=== PATIENT | male | born 1990 | race Caucasian/White ===

== ENCOUNTER 2018-07-10 16:52 | Emergency (ER) | payer MEDICAID ==
[~2018-07-10] VITALS: Ht 180.3 cm; Wt 150.0 kg
[2018-07-10] MEDS ORDERED: DIVA500T4 PO (17:07)
[2018-07-10] MEDS ORDERED: TOPI25TA32 PO (17:07)
[2018-07-10] MEDS ORDERED: LOSA50TA14 PO (17:07)
[2018-07-10] MEDS ORDERED: MECL-76 PO (17:07)
[2018-07-10] MEDS ORDERED: ONDA4TAB7 PO (17:07)
[2018-07-10] MEDS ORDERED: ARIP5TAB13 PO (17:07)
[2018-07-10] MEDS ORDERED: SERT50TA PO (17:07)
[2018-07-10] MEDS ORDERED: CHLO25TA PO (17:07)
--- NOTE | 2018-07-10 17:09 | NUR ---
BIB [facility] D/T UNK AMOUNT DEPAKOTE . PT STATED PT WASNT FEELING WELL AND WENT DOWN IN THE RM AND TOOK DEPAKOTE AND WOKE UP THE BOTTLE WAS EMPTY. PT DIDNT REMEMBER HOW MANY PILLS TOOK BUT THE BOTTLE WAS EMPTY NOBODY WAS IN THE APT. PT IS AAOX4 SLIGHT DROWSY FSBS 116 NSR ON MONITOR BP STABLE HX OF SCHIZO SZ HTN DR DUARTE AT BED SIDE FOR ER EVAL PT IS STILL AAOX4 ABLE TO ANSWER FROM STAFF
--- NOTE | 2018-07-10 17:32 | NUR ---
pt strongly denied SI SA pt stated " i love my life i am not suicide "
[2018-07-10 17:50] LABS: BASOPHILS # (AUTO) 0.05 x10^3/uL (0-0.1); BASOPHILS % (AUTO) 1 % (0-1); EOSINOPHILS # (AUTO) 0.13 x10^3/uL (0-0.4); EOSINOPHILS % (AUTO) 1 % (1-7); LYMPHOCYTES # (AUTO) 1.65 x10^3/uL (1-3.4); LYMPHOCYTES % (AUTO) 18 % (22-44); MD NO; MEAN CORPUSCULAR HEMOGLOBIN 28.6 pg (27.5-34.5); MEAN CORPUSCULAR HGB CONC 33.1 g/dL (33.2-36.2); MEAN CORPUSCULAR VOLUME 86.5 fL (81-97); MEAN PLATELET VOLUME 8.6 fL (7.4-10.4); MONOCYTES # (AUTO) 0.91 x10^3/uL (0.2-0.8); MONOCYTES % (AUTO) 10 % (2-9); NEUTROPHILS # (AUTO) 6.57 x10^3/uL (1.8-6.8); NEUTROPHILS % (AUTO) 71 % (42-75); PLATELET COUNT 289 x10^3/uL (130-400); RED BLOOD COUNT 5.03 x10^6/uL (4.38-5.82); RED CELL DISTRIBUTION WIDTH 14.6 % (9.4-14.8)
[2018-07-10 17:57] LABS: ALANINE AMINOTRANSFERASE 40 U/L (12-78); ALBUMIN 3.5 g/dL (3.4-5.0); ANION GAP 8 mmol/L (5-15); CALCIUM 9.2 mg/dL (8.5-10.1); CHLORIDE 106 mmol/L (98-107); CREATININE 0.96 mg/dL (0.7-1.3)
[2018-07-10 17:59] LABS: ACETAMINOPHEN < 2 mcg/mL (10-30); ALKALINE PHOSPHATASE 83 U/L (45-117); BILIRUBIN,TOTAL 0.2 mg/dL (0.2-1.0); SALICYLATE LEVEL < 1.7 mg/dL (2.8-20.0); TOTAL PROTEIN 7.2 g/dL (6.4-8.2)
--- NOTE | 2018-07-10 18:25 | NUR ---
pt is resting vss stable
--- NOTE | 2018-07-10 19:40 | NUR ---
pt is resting no discomfort at this time will still observe now
--- NOTE | 2018-07-10 20:16 | NUR ---
TASK RN, ASSISTING PRIMARY WITH DISCHARGE. PT DISCHARGED HOME, AMBULATES TO DISCHARGE DESK WITH STEADY GAIT.
[2018-07-10 20:20] VITALS: BP 123/58
== END 2018-07-10 20:31 | disposition home or self-care (01) ==
LOC: ED 20:00
DX: R53.1 Weakness (principal); F20.9 Schizophrenia, unspecified; I10 Essential (primary) hypertension
CPT/HCPCS: 36415; 80053; 80307; 82140; 85025; 93005; 99284

== ENCOUNTER 2018-07-22 20:25 | Emergency (ER) | payer MEDICAID ==
[~2018-07-22] VITALS: Ht 180.3 cm; Wt 153.0 kg
[~2018-07-22 20:25] MED LIST: ARIP5TAB13 PO; CHLO25TA PO; DIVA500T4 PO; LOSA50TA14 PO; MECL-76 PO; ONDA4TAB7 PO; SERT50TA PO; TOPI25TA32 PO
[2018-07-22 21:33] LABS: BASOPHILS # (AUTO) 0.04 x10^3/uL (0-0.1); BASOPHILS % (AUTO) 1 % (0-1); EOSINOPHILS # (AUTO) 0.17 x10^3/uL (0-0.4); EOSINOPHILS % (AUTO) 2 % (1-7); LYMPHOCYTES # (AUTO) 1.75 x10^3/uL (1-3.4); LYMPHOCYTES % (AUTO) 21 % (22-44); MD NO; MEAN CORPUSCULAR HEMOGLOBIN 28.7 pg (27.5-34.5); MEAN CORPUSCULAR VOLUME 86.9 fL (81-97); MEAN PLATELET VOLUME 8.8 fL (7.4-10.4); MONOCYTES # (AUTO) 0.96 x10^3/uL (0.2-0.8); MONOCYTES % (AUTO) 11 % (2-9); NEUTROPHILS # (AUTO) 5.53 x10^3/uL (1.8-6.8); NEUTROPHILS % (AUTO) 66 % (42-75); PLATELET COUNT 283 x10^3/uL (130-400); RED BLOOD COUNT 4.54 x10^6/uL (4.38-5.82); RED CELL DISTRIBUTION WIDTH 15.3 % (9.4-14.8)
[2018-07-22 21:46] LABS: ALBUMIN 3.5 g/dL (3.4-5.0); ANION GAP 7 mmol/L (5-15); CALCIUM 8.8 mg/dL (8.5-10.1); CHLORIDE 113 mmol/L (98-107)
[2018-07-22 21:50] LABS: ALANINE AMINOTRANSFERASE 43 U/L (12-78); ALKALINE PHOSPHATASE 80 U/L (45-117); BILIRUBIN,TOTAL 0.3 mg/dL (0.2-1.0); CREATININE 1.07 mg/dL (0.7-1.3); TOTAL PROTEIN 6.9 g/dL (6.4-8.2)
--- NOTE | 2018-07-22 22:38 | NUR ---
FROM LOBBY TO ROOM
--- NOTE | 2018-07-22 23:07 | NUR ---
DR. MANCIA WAS IN TO DISCUSS FINDING SO FAR AND POC WITH PT.
[2018-07-22] MEDS ORDERED: MAALOX/HYOSCYAMINE/LIDOCAINE 45 ML BTL ONE (23:24)
[2018-07-22] MEDS ORDERED: ONDANSETRON ODT 4 MG ONE (23:24)
[2018-07-22] MEDS ORDERED: ONDANSETRON ODT 8 MG ONE (23:27)
--- NOTE | 2018-07-22 23:29 | NUR ---
PT. TO [facility] WITH C/O RLQ ABD PAIN, N/V/D SINCE YESTERDAY AM AT 0900. PT. REPORTS WAS SEEN YESTERDAY AT [facility] ([place]) FOR SAME "THEY COULDN'T FIND ANYTHING". REQUESTED UA FROM PT. "I CAN'T PEE RIGHT NOW". PT. IS AWARE OF NEED FOR UA. MEDICATED PER MAR. DENIES NEEDS.
[2018-07-22] MEDS ORDERED: ONDANSETRON ODT 8 MG PO ONE (23:30)
[2018-07-22] MEDS ORDERED: MAALOX/HYOSCYAMINE/LIDOCAINE 45 ML BTL PO ONE (23:30)
--- NOTE | 2018-07-23 00:07 | NUR ---
PT. OUT OF ROOM FOR US.
--- NOTE | 2018-07-23 00:28 | NUR ---
REQUESTED URINE SAMPLE FROM PT. HE STATES "NO" WHEN ASKED TO AT LEAST TRY TO PROVIDE SAMPLE. DENIES NEEDS. SAFETY MEASURES OBSERVED.
[2018-07-23 00:31] VITALS: BP 107/60
--- NOTE | 2018-07-23 00:31 | NUR ---
TASK RN: PT RESTING IN GURNEY W/ EYES CLOSED. BP/SPO2 MONITOR IN PLACE. RESPIRATIONS EVEN/UNLABORED. PER PRIMARY RNCONG, PT REFUSING UA AT THIS TIME.
--- NOTE | 2018-07-23 00:54 | NUR ---
TASK RN: POC IS DC. PT OFF MONITORING AND UP TO DRESS SELF. AWAITING DC INSTRUCTIONS.
--- NOTE | 2018-07-23 01:15 | NUR ---
TASK RN: DC EDUCATION PROVIDED, PT DEMONSTRATES UNDERSTANDING. PT AMBULATED STEADILY TO DC WITH RN
== END 2018-07-23 01:17 | disposition home or self-care (01) ==
LOC: ED 23:13
DX: R10.11 Right upper quadrant pain (principal); R11.2 Nausea with vomiting, unspecified; R19.7 Diarrhea, unspecified; F20.9 Schizophrenia, unspecified; I10 Essential (primary) hypertension
CPT/HCPCS: 36415; 76700; 80053; 83690; 85025; 99284; Q0162

== ENCOUNTER 2018-08-21 03:44 | Inpatient (IN) | payer MEDICAID ==
[~2018-08-21] VITALS: Ht 180.3 cm; Wt 150.8 kg
[2018-08-21 04:38] VITALS: BP 133/79
[2018-08-21] MEDS ORDERED: BISACODYL 10 MG SUPP PR PRN (05:00)
[2018-08-21] MEDS ORDERED: POLYETHYLENE GLYCOL 17 GM PACKET PO PRN (05:00)
[2018-08-21] MEDS ORDERED: DOCUSATE 100 MG CAPSULE PO PRN (05:00)
[2018-08-21 06:23] LABS: BASOPHILS # (AUTO) 0.06 x10^3/uL (0-0.1); BASOPHILS % (AUTO) 1 % (0-1); EOSINOPHILS # (AUTO) 0.22 x10^3/uL (0-0.4); EOSINOPHILS % (AUTO) 3 % (1-7); LYMPHOCYTES # (AUTO) 1.87 x10^3/uL (1-3.4); LYMPHOCYTES % (AUTO) 28 % (22-44); MD NO; MEAN CORPUSCULAR HEMOGLOBIN 29.1 pg (27.5-34.5); MEAN CORPUSCULAR HGB CONC 33.2 g/dL (33.2-36.2); MEAN CORPUSCULAR VOLUME 87.5 fL (81-97); MEAN PLATELET VOLUME 9.1 fL (7.4-10.4); MONOCYTES # (AUTO) 0.64 x10^3/uL (0.2-0.8); MONOCYTES % (AUTO) 10 % (2-9); NEUTROPHILS # (AUTO) 3.81 x10^3/uL (1.8-6.8); NEUTROPHILS % (AUTO) 58 % (42-75); PLATELET COUNT 240 x10^3/uL (130-400); RED BLOOD COUNT 4.45 x10^6/uL (4.38-5.82); RED CELL DISTRIBUTION WIDTH 14.5 % (9.4-14.8)
[2018-08-21 06:24] LABS: CHLORIDE 113 mmol/L (98-107)
[2018-08-21 06:56] LABS: ALANINE AMINOTRANSFERASE 42 U/L (12-78); ALBUMIN 3.1 g/dL (3.4-5.0); ALKALINE PHOSPHATASE 79 U/L (45-117); ANION GAP 8 mmol/L (5-15); BILIRUBIN,TOTAL 0.3 mg/dL (0.2-1.0); CALCIUM 8.3 mg/dL (8.5-10.1); CHOL/HDL RATIO 5.2; CHOLESTEROL, TOTAL 129 mg/dL (140-239); CREATININE 0.95 mg/dL (0.7-1.3); HDL CHOL % 19 % (26-37); HDL CHOLESTEROL (DIRECT) 25 mg/dL (40-60); LDL CHOLESTEROL,CALCULATED 65 mg/dL (54-169); LDL/HDL RATIO 2.6 (0.5-3.0); T4 (THYROXINE) 6.5 mcg/dL (4.5-12.1); TOTAL PROTEIN 5.9 g/dL (6.4-8.2); TRIGLYCERIDES 195 mg/dL (50-200); VLDL CHOLESTEROL 39 mg/dL (0-25)
[2018-08-21 07:05] VITALS: BP 103/66
[2018-08-21 08:43] LABS: HCT (SEDRATE) 38.9 % (39.2-51.8)
[2018-08-21] MEDS: NICOTINE 21 MG/24 HR PATCH.TD24 TD SCH (09:21)
[2018-08-21] MEDS ORDERED: POTASSIUM CHLORIDE 20 MEQ TAB.ER.PRT PO ONE (11:00)
[2018-08-21] MEDS ORDERED: ONDANSETRON 4 MG TABLET PO PRN (11:00)
[2018-08-21] MEDS: MECLIZINE CHEWABLE 25 MG TAB PO SCH ×3 (11:30→20:22)
[2018-08-21 11:52] LABS: MICROSCOPIC NOT IND
[2018-08-21 11:55] LABS: CULTURE INDICATED? NO
[2018-08-21 12:17] LABS: AMPHETAMINE SCREEN, URINE Negative (Negative); BARBITURATE SCREEN, URINE Negative (Negative); BENZODIAZEPINE SCREEN, URINE Negative (Negative); CANNABINOID SCREEN, URINE Negative (Negative); COCAINE SCREEN, URINE Negative (Negative); METHADONE SCREEN, URINE Negative (Negative); OPIATE SCREEN, URINE Negative (Negative)
[2018-08-21] MEDS: ACETAMINOPHEN 325 MG TABLET PO PRN (18:18)
[2018-08-21 19:23] VITALS: BP 125/80
[2018-08-21] MEDS: TOPIRAMATE 25 MG TABLET PO SCH (20:22)
[2018-08-21] MEDS: DIVALPROEX 500 MG TAB.ER.24H PO SCH (20:25)
[2018-08-22 06:00] LABS: BASOPHILS # (AUTO) 0.05 x10^3/uL (0-0.1); BASOPHILS % (AUTO) 1 % (0-1); EOSINOPHILS # (AUTO) 0.19 x10^3/uL (0-0.4); EOSINOPHILS % (AUTO) 3 % (1-7); LYMPHOCYTES # (AUTO) 2.19 x10^3/uL (1-3.4); LYMPHOCYTES % (AUTO) 32 % (22-44); MD NO; MEAN CORPUSCULAR HEMOGLOBIN 28.9 pg (27.5-34.5); MEAN CORPUSCULAR HGB CONC 33.4 g/dL (33.2-36.2); MEAN CORPUSCULAR VOLUME 86.6 fL (81-97); MEAN PLATELET VOLUME 9.2 fL (7.4-10.4); MONOCYTES # (AUTO) 0.58 x10^3/uL (0.2-0.8); MONOCYTES % (AUTO) 8 % (2-9); NEUTROPHILS % (AUTO) 57 % (42-75); PLATELET COUNT 241 x10^3/uL (130-400); RED BLOOD COUNT 4.51 x10^6/uL (4.38-5.82); RED CELL DISTRIBUTION WIDTH 14.4 % (9.4-14.8)
[2018-08-22 06:23] LABS: ANION GAP 6 mmol/L (5-15); CALCIUM 8.6 mg/dL (8.5-10.1); CHLORIDE 114 mmol/L (98-107)
[2018-08-22 06:26] LABS: CREATININE 0.91 mg/dL (0.7-1.3)
[2018-08-22] MEDS: MECLIZINE CHEWABLE 25 MG TAB PO SCH ×4 (06:40→20:12)
[2018-08-22 07:34] VITALS: BP 121/80
[2018-08-22] MEDS: ARIPIPRAZOLE 5 MG TABLET PO SCH (08:57)
[2018-08-22] MEDS: LOSARTAN 50MG TABLET PO SCH (08:57)
[2018-08-22] MEDS: DIVALPROEX 500 MG TAB.ER.24H PO SCH ×2 (08:57→20:12)
[2018-08-22] MEDS: NICOTINE 21 MG/24 HR PATCH.TD24 TD SCH (08:58)
[2018-08-22] MEDS: CHLORTHALIDONE 25 MG TABLET PO SCH (08:58)
[2018-08-22] MEDS: TOPIRAMATE 25 MG TABLET PO SCH ×2 (08:58→20:12)
[2018-08-22] MEDS ORDERED: SERTRALINE 50MG TABLET PO SCH (09:00)
[2018-08-22] MEDS: ACETAMINOPHEN 325 MG TABLET PO PRN (18:22)
[2018-08-22 19:30] VITALS: BP 122/76
[2018-08-22] MEDS: TRAZODONE 100MG TABLET PO SCH (20:13)
[2018-08-23] MEDS: MECLIZINE CHEWABLE 25 MG TAB PO SCH ×4 (06:17→20:29)
[2018-08-23 07:12] VITALS: BP 113/73
[2018-08-23] MEDS: CHLORTHALIDONE 25 MG TABLET PO SCH (08:31)
[2018-08-23] MEDS: ARIPIPRAZOLE 5 MG TABLET PO SCH (08:31)
[2018-08-23] MEDS: DIVALPROEX 500 MG TAB.ER.24H PO SCH ×2 (08:31→20:29)
[2018-08-23] MEDS: TOPIRAMATE 25 MG TABLET PO SCH ×2 (08:31→20:29)
[2018-08-23] MEDS: LOSARTAN 50MG TABLET PO SCH (08:31)
[2018-08-23] MEDS: SERTRALINE 50MG TABLET PO SCH (08:31)
[2018-08-23] MEDS: NICOTINE 21 MG/24 HR PATCH.TD24 TD SCH (08:33)
[2018-08-23 19:34] VITALS: BP 108/69
[2018-08-23] MEDS: TRAZODONE 100MG TABLET PO SCH (20:29)
[2018-08-24] MEDS: MECLIZINE CHEWABLE 25 MG TAB PO SCH ×4 (06:17→19:37)
[2018-08-24 07:30] VITALS: BP 117/68
[2018-08-24] MEDS: ARIPIPRAZOLE 5 MG TABLET PO SCH (09:15)
[2018-08-24] MEDS: TOPIRAMATE 25 MG TABLET PO SCH ×2 (09:16→19:37)
[2018-08-24] MEDS: LOSARTAN 50MG TABLET PO SCH (09:16)
[2018-08-24] MEDS: CHLORTHALIDONE 25 MG TABLET PO SCH (09:16)
[2018-08-24] MEDS: DIVALPROEX 500 MG TAB.ER.24H PO SCH ×2 (09:16→19:37)
[2018-08-24] MEDS: SERTRALINE 50MG TABLET PO SCH (09:17)
[2018-08-24] MEDS: NICOTINE 21 MG/24 HR PATCH.TD24 TD SCH (09:17)
[2018-08-24] MEDS ORDERED: HYDROXYZINE PAMOATE 50MG CAP PO PRN (16:30)
[2018-08-24 18:15] VITALS: BP 124/78
[2018-08-24 18:51] VITALS: BP 132/77
[2018-08-24 19:11] LABS: TROPONIN I < 0.015 ng/mL (0.000-0.045)
[2018-08-24] MEDS: ACETAMINOPHEN 325 MG TABLET PO PRN (19:37)
[2018-08-24 19:38] VITALS: BP 133/71
[2018-08-24] MEDS: TRAZODONE 100MG TABLET PO SCH (19:40)
[2018-08-24 22:27] LABS: TROPONIN I < 0.015 ng/mL (0.000-0.045)
[2018-08-25 01:57] LABS: TROPONIN I < 0.015 ng/mL (0.000-0.045)
[2018-08-25] MEDS: MECLIZINE CHEWABLE 25 MG TAB PO SCH ×4 (06:00→20:13)
[2018-08-25 07:32] VITALS: BP 110/70
[2018-08-25] MEDS: TOPIRAMATE 25 MG TABLET PO SCH ×2 (08:59→20:14)
[2018-08-25] MEDS: SERTRALINE 50MG TABLET PO SCH (08:59)
[2018-08-25] MEDS: LOSARTAN 50MG TABLET PO SCH (08:59)
[2018-08-25] MEDS: ARIPIPRAZOLE 5 MG TABLET PO SCH (08:59)
[2018-08-25] MEDS: CHLORTHALIDONE 25 MG TABLET PO SCH (08:59)
[2018-08-25] MEDS: DIVALPROEX 500 MG TAB.ER.24H PO SCH ×2 (08:59→20:13)
[2018-08-25] MEDS: NICOTINE 21 MG/24 HR PATCH.TD24 TD SCH (09:00)
[2018-08-25] MEDS: ACETAMINOPHEN 325 MG TABLET PO PRN (18:45)
[2018-08-25 19:38] VITALS: BP 103/60
[2018-08-25] MEDS: TRAZODONE 100MG TABLET PO SCH (20:14)
[2018-08-26] MEDS: MECLIZINE CHEWABLE 25 MG TAB PO SCH ×2 (06:01→11:14)
[2018-08-26 07:21] VITALS: BP 127/81
[2018-08-26] MEDS: LOSARTAN 50MG TABLET PO SCH (08:02)
[2018-08-26] MEDS: ARIPIPRAZOLE 5 MG TABLET PO SCH (08:02)
[2018-08-26] MEDS: DIVALPROEX 500 MG TAB.ER.24H PO SCH (08:03)
[2018-08-26] MEDS: CHLORTHALIDONE 25 MG TABLET PO SCH (08:03)
[2018-08-26] MEDS: TOPIRAMATE 25 MG TABLET PO SCH (08:03)
[2018-08-26] MEDS: SERTRALINE 50MG TABLET PO SCH (08:04)
[2018-08-26] MEDS: NICOTINE 21 MG/24 HR PATCH.TD24 TD SCH (08:06)
== END 2018-08-26 12:15 | disposition left against medical advice (07) | DRG 885 ==
LOC: 3E 04:27
PROVIDERS: ADMIT Psychiatry & Neurology Psychosomatic Medicine; ATTEND Psychiatry & Neurology Psychosomatic Medicine
DX: F25.0 Schizoaffective disorder, bipolar type (principal); R45.851 Suicidal ideations; Z68.42 Body mass index [BMI] 45.0-49.9, adult; I10 Essential (primary) hypertension; G43.909 Migraine, unspecified, not intractable, without status migrainosus; E87.6 Hypokalemia; G40.909 Epilepsy, unspecified, not intractable, without status epilepticus; F17.200 Nicotine dependence, unspecified, uncomplicated; F14.11 Cocaine abuse, in remission; E66.9 Obesity, unspecified; Z53.21 Procedure and treatment not carried out due to patient leaving prior to being seen by health care provider; Z88.6 Allergy status to analgesic agent; Z81.8 Family history of other mental and behavioral disorders
CPT/HCPCS: 36415; 71045; 80048; 80053; 80061; 80164; 80307; 81003; 82140; 82607; 84436; 84443; 84484; 85025; 85651; 86592; 93005; Q0177

== ENCOUNTER 2018-09-24 13:24 | Emergency (ER) | payer MEDICAID ==
[~2018-09-24] VITALS: Ht 180.3 cm; Wt 152.2 kg
[2018-09-24 13:33] VITALS: BP 143/82
== END 2018-09-24 18:35 ==
LOC: ED 16:02 → UNDOADMIN 16:51 → EDIP 16:51 → ED 18:35
DX: F33.9 Major depressive disorder, recurrent, unspecified (principal); R45.851 Suicidal ideations; F20.9 Schizophrenia, unspecified; I10 Essential (primary) hypertension
CPT/HCPCS: 36415; 80053; 80061; 80164; 80307; 82140; 82607; 84436; 84443; 85025; 85651; 86592; 99285

== ENCOUNTER 2018-09-24 18:33 | Inpatient (IN) | payer MEDICAID ==
[~2018-09-24] VITALS: Ht 180.3 cm; Wt 151.3 kg
[2018-09-30 07:37] VITALS: BP 108/64
== END 2018-09-30 10:27 | disposition home or self-care (01) | DRG 750 ==
LOC: 3E 18:33
PROVIDERS: ADMIT Psychiatry & Neurology Psychosomatic Medicine; ATTEND Psychiatry & Neurology Psychosomatic Medicine
DX: F25.0 Schizoaffective disorder, bipolar type (principal); R45.851 Suicidal ideations; E66.01 Morbid (severe) obesity due to excess calories; E87.0 Hyperosmolality and hypernatremia; Z68.42 Body mass index [BMI] 45.0-49.9, adult; G40.909 Epilepsy, unspecified, not intractable, without status epilepticus; F14.20 Cocaine dependence, uncomplicated; F17.200 Nicotine dependence, unspecified, uncomplicated; G47.00 Insomnia, unspecified; I10 Essential (primary) hypertension; Z79.899 Other long term (current) drug therapy; Z88.8 Allergy status to other drugs, medicaments and biological substances
CPT/HCPCS: 36415; 70450; 80048; 80053; 80061; 80164; 81003; 82140; 82607; 84439; 84443; 85025; 86592; 93005

== ENCOUNTER 2018-10-01 22:42 | Emergency (ER) | payer MEDICAID ==
[~2018-10-01] VITALS: Ht 180.3 cm; Wt 148.5 kg
[2018-10-03 09:41] VITALS: BP 118/61
== END 2018-10-03 14:19 | disposition home or self-care (01) ==
LOC: ED 22:59
DX: R45.851 Suicidal ideations (principal); I10 Essential (primary) hypertension; F32.9 Major depressive disorder, single episode, unspecified; F20.9 Schizophrenia, unspecified
CPT/HCPCS: 36415; 80048; 80164; 80307; 82040; 85025; 99284

== ENCOUNTER 2019-01-08 02:54 | Emergency (ER) | payer MEDICAID, OTHER ==
[~2019-01-08] VITALS: Ht 180.3 cm; Wt 146.9 kg
[~2019-01-08 02:54] MED LIST changes: +ARIP10TA33 PO; +SERT50TA28 PO; +TRAZ-137 PO
[2019-01-08] MEDS ORDERED: KETOROLAC 30 MG/1 ML IM ONE (03:30)
[2019-01-08] MEDS ORDERED: KETOROLAC 30 MG/1 ML ONE (03:36)
[2019-01-08 04:22] VITALS: BP 135/71
== END 2019-01-08 04:25 | disposition home or self-care (01) ==
LOC: ED 04:15
DX: G89.11 Acute pain due to trauma (principal); M25.511 Pain in right shoulder; F14.10 Cocaine abuse, uncomplicated; F17.210 Nicotine dependence, cigarettes, uncomplicated; F32.9 Major depressive disorder, single episode, unspecified; Y04.8XXA Assault by other bodily force, initial encounter; Y93.89 Activity, other specified; Y92.89 Other specified places as the place of occurrence of the external cause; Y99.0 Civilian activity done for income or pay
CPT/HCPCS: 73030; 96372; 99283; J1885

== ENCOUNTER 2019-01-24 18:23 | Emergency (ER) | payer MEDICAID, OTHER ==
[~2019-01-24] VITALS: Ht 180.3 cm; Wt 146.1 kg
[2019-01-24] MEDS ORDERED: ASPIRIN 81 MG TABLET CHEW ONE (19:23)
[2019-01-24 19:33] LABS: BASOPHILS # (AUTO) 0.08 x10^3/uL (0-0.1); BASOPHILS % (AUTO) 1 % (0-1); EOSINOPHILS # (AUTO) 0.24 x10^3/uL (0-0.4); EOSINOPHILS % (AUTO) 2 % (1-7); LYMPHOCYTES # (AUTO) 2.38 x10^3/uL (1-3.4); LYMPHOCYTES % (AUTO) 24 % (22-44); MD NO; MEAN CORPUSCULAR HEMOGLOBIN 28.6 pg (27.5-34.5); MEAN CORPUSCULAR HGB CONC 32.7 g/dL (33.2-36.2); MEAN CORPUSCULAR VOLUME 87.5 fL (81-97); MEAN PLATELET VOLUME 8.5 fL (7.4-10.4); MONOCYTES # (AUTO) 0.66 x10^3/uL (0.2-0.8); MONOCYTES % (AUTO) 7 % (2-9); NEUTROPHILS # (AUTO) 6.48 x10^3/uL (1.8-6.8); NEUTROPHILS % (AUTO) 66 % (42-75); PLATELET COUNT 302 x10^3/uL (130-400); RED BLOOD COUNT 4.99 x10^6/uL (4.38-5.82); RED CELL DISTRIBUTION WIDTH 14.9 % (9.4-14.8)
[2019-01-24 19:45] LABS: ALANINE AMINOTRANSFERASE 48 U/L (12-78); ALBUMIN 3.1 g/dL (3.4-5.0); ANION GAP 6 mmol/L (5-15); CALCIUM 8.2 mg/dL (8.5-10.1); CHLORIDE 109 mmol/L (98-107); CREATININE 0.88 mg/dL (0.7-1.3)
[2019-01-24 19:50] LABS: ALKALINE PHOSPHATASE 62 U/L (45-117); BILIRUBIN,TOTAL 0.4 mg/dL (0.2-1.0); TOTAL PROTEIN 5.8 g/dL (6.4-8.2); TROPONIN I < 0.015 ng/mL (0.000-0.045)
[2019-01-24 20:00] VITALS: BP 131/72
[2019-01-24] MEDS ORDERED: ASPIRIN 81 MG TABLET CHEW PO ONE (20:00)
--- NOTE | 2019-01-24 20:00 | NUR ---
D/C INSTRUCTIONS, MEDS & F/U APPT RV'WD WITH PT, HE VERBALIZES UNDERSTANDING. RX GIVEN X2. PT AMBULATED OUT OF ED WITHOUT DIFFICULTY.
--- NOTE | 2019-01-24 20:03 | NUR ---
ASHLEY MCGARW AT .
== END 2019-01-24 20:28 | disposition home or self-care (01) ==
LOC: ED 20:22
DX: J06.9 Acute upper respiratory infection, unspecified (principal); F17.210 Nicotine dependence, cigarettes, uncomplicated
CPT/HCPCS: 36415; 71046; 80053; 84484; 85025; 93005; 99284

== ENCOUNTER 2019-02-10 16:32 | Inpatient (IN) | payer MEDICAID ==
[~2019-02-10] VITALS: Ht 180.3 cm; Wt 140.7 kg
[2019-02-10] MEDS ORDERED: POLYETHYLENE GLYCOL 17 GM PACKET PO PRN (18:00)
[2019-02-10] MEDS ORDERED: DOCUSATE 100 MG CAPSULE PO PRN (18:00)
[2019-02-10] MEDS ORDERED: ACETAMINOPHEN 325 MG TABLET PO PRN (18:00)
[2019-02-10] MEDS ORDERED: BISACODYL 10 MG SUPP PR PRN (18:00)
[2019-02-10] MEDS ORDERED: ONDANSETRON ODT 4 MG PO PRN (18:00)
[2019-02-10 19:30] VITALS: BP 141/84
[2019-02-10] MEDS: PLEASE ENTER HEIGHT AND WEIGHT MC SCH (19:30)
[2019-02-10] MEDS ORDERED: ONDANSETRON 4 MG TABLET PO PRN (20:30)
[2019-02-10] MEDS: DIVALPROEX 500 MG TAB.ER.24H PO SCH (20:44)
[2019-02-10] MEDS: TRAZODONE 100MG TABLET PO SCH (20:45)
[2019-02-10] MEDS ORDERED: TOPIRAMATE 100 MG TABLET ONE (20:46)
[2019-02-10] MEDS: MECLIZINE HCL 25 MG TABLET PO SCH (20:48)
[2019-02-10] MEDS: TOPIRAMATE 25 MG TABLET PO SCH (21:24)
[2019-02-11] MEDS: PLEASE ENTER HEIGHT AND WEIGHT MC SCH (03:30)
[2019-02-11] MEDS: MECLIZINE HCL 25 MG TABLET PO SCH ×4 (06:08→20:41)
[2019-02-11 07:21] LABS: BASOPHILS # (AUTO) 0.04 x10^3/uL (0-0.1); BASOPHILS % (AUTO) 1 % (0-1); EOSINOPHILS # (AUTO) 0.26 x10^3/uL (0-0.4); EOSINOPHILS % (AUTO) 4 % (1-7); LYMPHOCYTES # (AUTO) 2.18 x10^3/uL (1-3.4); LYMPHOCYTES % (AUTO) 33 % (22-44); MD NO; MEAN CORPUSCULAR HEMOGLOBIN 28.6 pg (27.5-34.5); MEAN CORPUSCULAR VOLUME 86.7 fL (81-97); MEAN PLATELET VOLUME 8.2 fL (7.4-10.4); MONOCYTES # (AUTO) 0.67 x10^3/uL (0.2-0.8); MONOCYTES % (AUTO) 10 % (2-9); NEUTROPHILS # (AUTO) 3.53 x10^3/uL (1.8-6.8); NEUTROPHILS % (AUTO) 53 % (42-75); PLATELET COUNT 257 x10^3/uL (130-400); RED CELL DISTRIBUTION WIDTH 14.8 % (9.4-14.8)
[2019-02-11 07:32] LABS: ALBUMIN 3.1 g/dL (3.4-5.0); ANION GAP 7 mmol/L (5-15); CALCIUM 8.5 mg/dL (8.5-10.1); CHLORIDE 112 mmol/L (98-107)
[2019-02-11 07:49] VITALS: BP 128/82
[2019-02-11 07:57] LABS: ALANINE AMINOTRANSFERASE 67 U/L (12-78); ALKALINE PHOSPHATASE 76 U/L (45-117); BILIRUBIN,TOTAL 0.4 mg/dL (0.2-1.0); CHOL/HDL RATIO 5.6; CHOLESTEROL, TOTAL 117 mg/dL (140-239); CREATININE 0.98 mg/dL (0.7-1.3); FREE T4 (FREE THYROXINE) 1.16 ng/dL (0.76-1.46); HDL CHOL % 18 % (26-37); HDL CHOLESTEROL (DIRECT) 21 mg/dL (40-60); LDL CHOLESTEROL,CALCULATED 55 mg/dL (54-169); LDL/HDL RATIO 2.6 (0.5-3.0); TOTAL PROTEIN 6.2 g/dL (6.4-8.2); TRIGLYCERIDES 205 mg/dL (50-200); VLDL CHOLESTEROL 41 mg/dL (0-25)
[2019-02-11] MEDS: TOPIRAMATE 25 MG TABLET PO SCH ×3 (09:00→21:02)
[2019-02-11] MEDS: DIVALPROEX 500 MG TAB.ER.24H PO SCH ×3 (09:00→21:00)
[2019-02-11] MEDS: ARIPIPRAZOLE 10 MG TABLET PO SCH (09:10)
[2019-02-11] MEDS: CHLORTHALIDONE 25 MG TABLET PO SCH (09:11)
[2019-02-11] MEDS: SERTRALINE 50MG TABLET PO SCH (09:11)
[2019-02-11] MEDS: LOSARTAN 50MG TABLET PO SCH (09:12)
[2019-02-11] MEDS: NICOTINE 21 MG/24 HR PATCH.TD24 TD SCH (09:15)
[2019-02-11 09:26] LABS: MICROSCOPIC NOT IND
[2019-02-11 09:33] LABS: CULTURE INDICATED? NO
[2019-02-11] MEDS: MULTIVITAMIN 1 TABLET PO SCH (12:06)
[2019-02-11] MEDS: FOLIC ACID 1 MG TABLET PO SCH (12:07)
[2019-02-11] MEDS: THIAMINE 100MG TABLET PO SCH (12:07)
[2019-02-11 19:57] VITALS: BP 138/86
[2019-02-11] MEDS: TRAZODONE 100MG TABLET PO SCH (20:41)
[2019-02-12] MEDS: MECLIZINE HCL 25 MG TABLET PO SCH ×4 (06:01→20:16)
[2019-02-12 07:12] VITALS: BP 117/76
[2019-02-12] MEDS: NICOTINE 21 MG/24 HR PATCH.TD24 TD SCH (08:43)
[2019-02-12] MEDS: CHLORTHALIDONE 25 MG TABLET PO SCH (08:44)
[2019-02-12] MEDS: MULTIVITAMIN 1 TABLET PO SCH (08:44)
[2019-02-12] MEDS: DIVALPROEX 500 MG TAB.ER.24H PO SCH ×2 (08:44→20:16)
[2019-02-12] MEDS: ARIPIPRAZOLE 10 MG TABLET PO SCH (08:44)
[2019-02-12] MEDS: THIAMINE 100MG TABLET PO SCH (08:44)
[2019-02-12] MEDS: LOSARTAN 50MG TABLET PO SCH (08:44)
[2019-02-12] MEDS: SERTRALINE 50MG TABLET PO SCH (08:45)
[2019-02-12] MEDS: FOLIC ACID 1 MG TABLET PO SCH (08:45)
[2019-02-12] MEDS: TOPIRAMATE 25 MG TABLET PO SCH ×2 (08:57→20:16)
[2019-02-12] MEDS ORDERED: SERT50TA28 PO (13:17)
[2019-02-12] MEDS ORDERED: TRAZ-137 PO (13:17)
[2019-02-12] MEDS ORDERED: ARIP10TA33 PO (13:17)
[2019-02-12] MEDS ORDERED: LOSA50TA2 PO (13:17)
[2019-02-12] MEDS ORDERED: CHLO25TA PO (13:17)
[2019-02-12 19:27] VITALS: BP 95/61
[2019-02-12] MEDS: TRAZODONE 100MG TABLET PO SCH (20:16)
[2019-02-12 22:56] VITALS: BP 111/69
[2019-02-13] MEDS: MECLIZINE HCL 25 MG TABLET PO SCH ×2 (06:10→11:00)
[2019-02-13 07:24] VITALS: BP 109/70
[2019-02-13] MEDS: ARIPIPRAZOLE 10 MG TABLET PO SCH (08:37)
[2019-02-13] MEDS: DIVALPROEX 500 MG TAB.ER.24H PO SCH (08:37)
[2019-02-13] MEDS: LOSARTAN 50MG TABLET PO SCH (08:37)
[2019-02-13] MEDS: MULTIVITAMIN 1 TABLET PO SCH (08:37)
[2019-02-13] MEDS: THIAMINE 100MG TABLET PO SCH (08:37)
[2019-02-13] MEDS: FOLIC ACID 1 MG TABLET PO SCH (08:37)
[2019-02-13] MEDS: SERTRALINE 50MG TABLET PO SCH (08:37)
[2019-02-13] MEDS: CHLORTHALIDONE 25 MG TABLET PO SCH (08:37)
[2019-02-13] MEDS: TOPIRAMATE 25 MG TABLET PO SCH (08:37)
[2019-02-13] MEDS: NICOTINE 21 MG/24 HR PATCH.TD24 TD SCH (08:38)
== END 2019-02-13 11:27 | disposition home or self-care (01) | DRG 750 ==
LOC: 3E 18:10
PROVIDERS: ADMIT Psychiatry & Neurology Psychosomatic Medicine; ATTEND Psychiatry & Neurology Psychosomatic Medicine
DX: F25.0 Schizoaffective disorder, bipolar type (principal); Z68.41 Body mass index [BMI] 40.0-44.9, adult; R45.851 Suicidal ideations; E66.9 Obesity, unspecified; G43.909 Migraine, unspecified, not intractable, without status migrainosus; G47.00 Insomnia, unspecified; I10 Essential (primary) hypertension; I25.10 Atherosclerotic heart disease of native coronary artery without angina pectoris; F17.200 Nicotine dependence, unspecified, uncomplicated; F10.10 Alcohol abuse, uncomplicated; Z79.899 Other long term (current) drug therapy; Z91.14 Patient's other noncompliance with medication regimen
CPT/HCPCS: 36415; 80053; 80061; 81003; 82607; 84439; 84443; 85025; 93005

== ENCOUNTER 2019-02-23 19:55 | Emergency (ER) | payer MEDICAID ==
[~2019-02-23] VITALS: Ht 180.3 cm; Wt 140.0 kg
[~2019-02-23 19:55] MED LIST changes: +LOSA50TA2 PO
--- NOTE | 2019-02-23 20:23 | NUR ---
Pt ambulatory to ED. +HI. Denies SI. Released from long term 02/07. "I'll do anything to get back in". Sts has no support outside of long term. Stole a credit card. Was at [facility] and held there for 3 days, released today. A&Ox4 GCS 15, calm, cooperative. Changed into gown, belongings locked up in locker (3 bags). VSS. physical assessment unremarkable. awaiting md. sitter notified. Call mensah in reach. as
[2019-02-23 20:25] VITALS: BP 130/75
--- NOTE | 2019-02-23 20:54 | NUR ---
SEEN BY PA. AWALINDSAY SPARKS. CALM, COOPERATIVE.
== END 2019-02-23 22:01 | disposition home or self-care (01) ==
LOC: ED 20:27
DX: R45.850 Homicidal ideations (principal); Z00.00 Encounter for general adult medical examination without abnormal findings; I10 Essential (primary) hypertension
CPT/HCPCS: 99281

== ENCOUNTER 2019-03-19 00:17 | Emergency (ER) | payer MEDICAID ==
[~2019-03-19] VITALS: Ht 180.3 cm; Wt 149.0 kg
[2019-03-19] MEDS ORDERED: MAALOX/HYOSCYAMINE/LIDOCAINE 45 ML BTL ONE (00:39)
[2019-03-19] MEDS ORDERED: DIVALPROEX 500 MG TAB.ER.24H ONE (00:39)
[2019-03-19] MEDS ORDERED: DIVALPROEX 500 MG TABLET.DR ONE (00:41)
--- NOTE | 2019-03-19 00:43 | NUR ---
Medicated per MAR.
[2019-03-19] MEDS ORDERED: DIVALPROEX 500 MG TABLET.DR PO ONE (01:00)
[2019-03-19] MEDS ORDERED: MAALOX/HYOSCYAMINE/LIDOCAINE 45 ML BTL PO ONE (01:00)
[2019-03-19 01:32] VITALS: BP 137/65
--- NOTE | 2019-03-19 01:32 | NUR ---
Pt ambulated to fl desk on steady gait.
== END 2019-03-19 01:36 | disposition home or self-care (01) ==
LOC: ED 00:40
DX: K21.9 Gastro-esophageal reflux disease without esophagitis (principal); I10 Essential (primary) hypertension; F17.210 Nicotine dependence, cigarettes, uncomplicated
CPT/HCPCS: 93005; 99283

== ENCOUNTER 2019-09-05 14:43 | Emergency (ER) | payer MEDICAID ==
[~2019-09-05] VITALS: Ht 180.3 cm; Wt 142.3 kg
[~2019-09-05 14:43] MED LIST changes: -TRAZ-137 PO; +TRAZ-175 PO
[2019-09-05 14:47] VITALS: BP 140/85
[2019-09-05] MEDS ORDERED: ONDANSETRON 2MG/ML, 2ML IVPush ONE (15:30)
[2019-09-05] MEDS ORDERED: MORPHINE SULFATE 4 MG/ML, 1ML IVPush PRN (15:30)
[2019-09-05] MEDS ORDERED: SODIUM CHLORIDE FLUSH 10ML SYR IVF ONE (15:30)
[2019-09-05] MEDS ORDERED: ONDANSETRON 2MG/ML, 2ML ONE (15:41)
[2019-09-05] MEDS ORDERED: MORPHINE SULFATE 4 MG/ML, 1ML ONE (15:42)
[2019-09-05 15:55] LABS: MICROSCOPIC AUTO
[2019-09-05 16:02] LABS: ALBUMIN 3.7 g/dL (3.4-5.0); ANION GAP 6 mmol/L (5-15); CALCIUM 9.3 mg/dL (8.5-10.1); CHLORIDE 110 mmol/L (98-107)
[2019-09-05 16:05] LABS: ALANINE AMINOTRANSFERASE 53 U/L (12-78); ALKALINE PHOSPHATASE 88 U/L (45-117); BILIRUBIN,TOTAL 0.5 mg/dL (0.2-1.0); TOTAL PROTEIN 6.9 g/dL (6.4-8.2)
[2019-09-05 16:09] LABS: BASOPHILS # (AUTO) 0.04 x10^3/uL (0-0.1); BASOPHILS % (AUTO) 1 % (0-1); EOSINOPHILS # (AUTO) 0.28 x10^3/uL (0-0.4); EOSINOPHILS % (AUTO) 4 % (1-7); LYMPHOCYTES # (AUTO) 1.77 x10^3/uL (1-3.4); LYMPHOCYTES % (AUTO) 23 % (22-44); MD NO; MEAN CORPUSCULAR HEMOGLOBIN 29.5 pg (27.5-34.5); MEAN CORPUSCULAR HGB CONC 33.6 g/dL (33.2-36.2); MEAN CORPUSCULAR VOLUME 87.8 fL (81-97); MEAN PLATELET VOLUME 9.4 fL (7.4-10.4); MONOCYTES # (AUTO) 0.73 x10^3/uL (0.2-0.8); MONOCYTES % (AUTO) 10 % (2-9); NEUTROPHILS # (AUTO) 4.91 x10^3/uL (1.8-6.8); NEUTROPHILS % (AUTO) 64 % (42-75); PLATELET COUNT 246 x10^3/uL (130-400); RED BLOOD COUNT 5.12 x10^6/uL (4.38-5.82); RED CELL DISTRIBUTION WIDTH 13.3 % (9.4-14.8)
--- NOTE | 2019-09-05 17:08 | NUR ---
CONTACTED CT ABOUT DELAY IN SCAN, PT IS NEXT TO BE SCANNED.
[2019-09-05] MEDS ORDERED: OMNIPAQUE 350 MG/ML, 150 ML BOTTLE ONE (17:41)
[2019-09-05] MEDS ORDERED: CIPROFLOXACIN 500 MG TABLET ONE (18:17)
[2019-09-05] MEDS ORDERED: metroNIDAZOLE 500 MG TABLET ONE (18:17)
[2019-09-05] MEDS ORDERED: metroNIDAZOLE 500 MG TABLET PO ONE (18:30)
[2019-09-05] MEDS ORDERED: CIPROFLOXACIN 500 MG TABLET PO ONE (18:30)
== END 2019-09-05 18:29 | disposition home or self-care (01) ==
LOC: ED 18:12
DX: N39.0 Urinary tract infection, site not specified (principal); K52.9 Noninfective gastroenteritis and colitis, unspecified; R10.31 Right lower quadrant pain; R11.2 Nausea with vomiting, unspecified; I10 Essential (primary) hypertension; K21.9 Gastro-esophageal reflux disease without esophagitis
CPT/HCPCS: 36415; 74177; 80053; 81001; 85025; 87086; 96374; 96375; 99285; J2270; J2405; Q9967

== ENCOUNTER 2019-09-07 02:08 | Inpatient (IN) | payer MEDICAID ==
[~2019-09-07] VITALS: Ht 180.3 cm; Wt 150.6 kg
--- NOTE | 2019-09-07 02:10 | NUR ---
pt BIB [facility] s/o intentional OD of 28 Depakote ER 500mg tablets. pt reports "I just wanna ". pt reports that he was seen here about 2 days ago and was Dx with UTI and that he is having abd pain becuase of the UTI and that he "just does not care to live anymore" Legal Hold in place initiated by [employer] pt reports multiple previous suicide attempts by OD attempting to run into traffic and attempted hanging. pt reports that he has hx of depression and that he has a remote Dx of schizo affective bipolar disorder. he reports that he sometimes hears voices, but not right now. denies viaual hallucinations. alert and cooperative denies injury. no resp. distress. no family at bedside
--- NOTE | 2019-09-07 02:17 | NUR ---
LEOPOLDO JOSEPH [phone]
[2019-09-07 02:26] LABS: BASOPHILS # (AUTO) 0.09 x10^3/uL (0-0.1); BASOPHILS % (AUTO) 1 % (0-1); EOSINOPHILS # (AUTO) 0.26 x10^3/uL (0-0.4); EOSINOPHILS % (AUTO) 3 % (1-7); LYMPHOCYTES # (AUTO) 2.35 x10^3/uL (1-3.4); LYMPHOCYTES % (AUTO) 26 % (22-44); MD NO; MEAN CORPUSCULAR HGB CONC 32.8 g/dL (33.2-36.2); MEAN CORPUSCULAR VOLUME 88.4 fL (81-97); MEAN PLATELET VOLUME 8.9 fL (7.4-10.4); MONOCYTES # (AUTO) 0.98 x10^3/uL (0.2-0.8); MONOCYTES % (AUTO) 11 % (2-9); NEUTROPHILS # (AUTO) 5.51 x10^3/uL (1.8-6.8); NEUTROPHILS % (AUTO) 60 % (42-75); PLATELET COUNT 248 x10^3/uL (130-400); RED BLOOD COUNT 5.12 x10^6/uL (4.38-5.82); RED CELL DISTRIBUTION WIDTH 13.5 % (9.4-14.8)
[2019-09-07] MEDS ORDERED: CHARCOAL/SORBITOL 50 GM/240 ML ONE (02:29)
[2019-09-07] MEDS ORDERED: SODIUM CHLORIDE 0.9% 1,000ML IVBOLUS ONE (02:30)
[2019-09-07] MEDS ORDERED: CHARCOAL/AQUEOUS 25 GM/120 ML PO ONE (02:30)
[2019-09-07] MEDS ORDERED: ONDANSETRON 2MG/ML, 2ML IVPush ONE ×2 (02:30→06:00)
--- NOTE | 2019-09-07 02:38 | NUR ---
pt has been medicated per order. aware of legal hold status.
--- NOTE | 2019-09-07 02:40 | NUR ---
pt states that he is currently taking 2 different PO ABX for his UTI, but is not aware of what they are
[2019-09-07 02:41] LABS: ALANINE AMINOTRANSFERASE 56 U/L (12-78); ALBUMIN 4.1 g/dL (3.4-5.0); ANION GAP 8 mmol/L (5-15); CALCIUM 9.2 mg/dL (8.5-10.1); CHLORIDE 111 mmol/L (98-107); CREATININE 1.26 mg/dL (0.7-1.3)
[2019-09-07 02:44] LABS: ALKALINE PHOSPHATASE 142 U/L (45-117); BILIRUBIN,TOTAL 0.4 mg/dL (0.2-1.0); SALICYLATE LEVEL < 1.7 mg/dL (2.8-20.0); TOTAL PROTEIN 7.1 g/dL (6.4-8.2)
--- NOTE | 2019-09-07 02:51 | NUR ---
belongings secured. pt dozing intermittently
--- NOTE | 2019-09-07 02:56 | NUR ---
LEOPOLDO JOSEPH [phone]
[2019-09-07] MEDS ORDERED: ONDANSETRON 2MG/ML, 2ML ONE ×2 (02:58→07:10)
--- NOTE | 2019-09-07 03:30 | NUR ---
pt sleeping. no apparent distress. this RN is optical lathe operator. will continue to monitor
[2019-09-07] MEDS ORDERED: ONDANSETRON ODT 4 MG PO PRN (04:00)
[2019-09-07] MEDS ORDERED: DOCUSATE 100 MG CAPSULE PO PRN (04:00)
[2019-09-07] MEDS ORDERED: POLYETHYLENE GLYCOL 17 GM PACKET PO PRN (04:00)
[2019-09-07] MEDS ORDERED: ONDANSETRON 2MG/ML, 2ML IVPush PRN (04:00)
[2019-09-07] MEDS ORDERED: ACETAMINOPHEN 325 MG TABLET PO PRN (04:00)
[2019-09-07] MEDS ORDERED: hydrALAzine 20 MG/ML, 1ML IVPush PRN (04:00)
[2019-09-07] MEDS ORDERED: BISACODYL 10 MG SUPP PR PRN (04:00)
[2019-09-07] MEDS ORDERED: PROMETHAZINE 25 MG/ML, 1ML IM PRN (04:00)
[2019-09-07 04:28] LABS: FREE T4 (FREE THYROXINE) 1.28 ng/dL (0.76-1.46)
--- NOTE | 2019-09-07 04:30 | NUR ---
no changes. pt continues sleeping. no apparent distress.
--- NOTE | 2019-09-07 05:30 | NUR ---
no changes. pt sleeping in position of comfort. no apparent distress. will continue to monitor
--- NOTE | 2019-09-07 05:45 | NUR ---
pt awoke and began vomiting. no resp. distress. pt ambualted to BR for BM. DOA collected and sent. fresh linens given. pt positioning for comfort
--- NOTE | 2019-09-07 06:15 | NUR ---
pt resting in position of comfort. dozing intermittently
--- NOTE | 2019-09-07 06:30 | NUR ---
pt sleeping. sitter at bedside
[2019-09-07 06:32] LABS: AMPHETAMINE SCREEN, URINE Negative (Negative); CANNABINOID SCREEN, URINE Negative (Negative); COCAINE SCREEN, URINE Negative (Negative); METHADONE SCREEN, URINE Negative (Negative)
[2019-09-07 06:35] LABS: BARBITURATE SCREEN, URINE Negative (Negative); BENZODIAZEPINE SCREEN, URINE Negative (Negative); OPIATE SCREEN, URINE Negative (Negative)
--- NOTE | 2019-09-07 06:52 | NUR ---
Report from Deepthi ARAUZ. Pt resting in bed with eyes closed, resp even and unlabored, MANUELAN. Monitors remain in place, all safety measures observed. Sitter within eyesight of pt.
--- NOTE | 2019-09-07 06:53 | NUR ---
awaiting admit. report to Thalia ARAUZ
--- NOTE | 2019-09-07 07:19 | NUR ---
Pt with one episode of emesis, small amount watery emesis with traces of charcoal. Pt provided towel to clean his face and fresh gown. Pt medicated with zofran per APR. POC discussed with pt. Pt denies other needs.
--- NOTE | 2019-09-07 07:26 | NUR ---
Report called to Tad ARAUZ on [employer] tele. Floor ready for pt transport.
--- NOTE | 2019-09-07 07:38 | NUR ---
Attempted to call Dr. Ortega ([facility]) to report critically high ammonia level. No answer. Message left.
--- NOTE | 2019-09-07 07:54 | NUR ---
No return call from Dr. Ortega. Called Tad ARAUZ to report critical lab values to him. He states he has to call Dr. Ortega right now and will convey the critical lab values.
[2019-09-07] MEDS: SODIUM CHLORIDE 0.9% 1,000 ML IV SCH ×4 (08:17→20:55)
[2019-09-07 08:23] VITALS: BP 124/61
[2019-09-07 08:51] VITALS: BP 134/94
[2019-09-07] MEDS: ENOXAPARIN 40 MG/0.4 ML SQ SCH (09:51)
[2019-09-07] MEDS: LACTULOSE 20 GM/30 ML UDC PO SCH ×2 (09:51→20:55)
[2019-09-07 12:07] VITALS: BP 125/78
[2019-09-07 19:22] VITALS: BP 129/81
[2019-09-08 00:10] VITALS: BP 111/66
[2019-09-08] MEDS: SODIUM CHLORIDE 0.9% 1,000 ML IV SCH ×3 (01:29→16:35)
[2019-09-08 01:59] LABS: BASOPHILS # (AUTO) 0.03 x10^3/uL (0-0.1); BASOPHILS % (AUTO) 0 % (0-1); EOSINOPHILS # (AUTO) 0.17 x10^3/uL (0-0.4); EOSINOPHILS % (AUTO) 2 % (1-7); LYMPHOCYTES # (AUTO) 2.04 x10^3/uL (1-3.4); LYMPHOCYTES % (AUTO) 27 % (22-44); MD NO; MEAN CORPUSCULAR HEMOGLOBIN 28.9 pg (27.5-34.5); MEAN CORPUSCULAR HGB CONC 32.2 g/dL (33.2-36.2); MEAN CORPUSCULAR VOLUME 89.9 fL (81-97); MONOCYTES # (AUTO) 0.66 x10^3/uL (0.2-0.8); MONOCYTES % (AUTO) 9 % (2-9); NEUTROPHILS # (AUTO) 4.75 x10^3/uL (1.8-6.8); NEUTROPHILS % (AUTO) 62 % (42-75); PLATELET COUNT 230 x10^3/uL (130-400); RED BLOOD COUNT 4.64 x10^6/uL (4.38-5.82)
[2019-09-08 08:06] LABS: ALANINE AMINOTRANSFERASE 40 U/L (12-78); ALBUMIN 2.9 g/dL (3.4-5.0); ANION GAP 5 mmol/L (5-15); CALCIUM 8.1 mg/dL (8.5-10.1); CHLORIDE 114 mmol/L (98-107); CHOLESTEROL, TOTAL 94 mg/dL (140-239); CREATININE 0.88 mg/dL (0.7-1.3); TRIGLYCERIDES 121 mg/dL (50-200); VLDL CHOLESTEROL 24 mg/dL (0-25)
[2019-09-08 08:09] LABS: ALKALINE PHOSPHATASE 77 U/L (45-117); BILIRUBIN,TOTAL 0.4 mg/dL (0.2-1.0); CHOL/HDL RATIO 3.4; HDL CHOL % 30 % (26-37); HDL CHOLESTEROL (DIRECT) 28 mg/dL (40-60); LDL CHOLESTEROL,CALCULATED 42 mg/dL (54-169); LDL/HDL RATIO 1.5 (0.5-3.0); TOTAL PROTEIN 5.6 g/dL (6.4-8.2)
[2019-09-08] MEDS: LACTULOSE 20 GM/30 ML UDC PO SCH ×4 (08:32→21:43)
[2019-09-08] MEDS: ENOXAPARIN 40 MG/0.4 ML SQ SCH (08:33)
[2019-09-08 08:43] VITALS: BP 132/81
[2019-09-08 15:01] VITALS: BP 132/81
[2019-09-08 18:37] VITALS: BP 122/77
[2019-09-08] MEDS ORDERED: LORazepam 2 MG/ML, 1ML IVPush ONE (20:30)
[2019-09-09] MEDS: SODIUM CHLORIDE 0.9% 1,000 ML IV SCH (01:01)
[2019-09-09 01:07] VITALS: BP 137/83
[2019-09-09 04:56] LABS: ALANINE AMINOTRANSFERASE 37 U/L (12-78); ALBUMIN 2.9 g/dL (3.4-5.0); ANION GAP 8 mmol/L (5-15); CALCIUM 8.3 mg/dL (8.5-10.1); CHLORIDE 114 mmol/L (98-107)
[2019-09-09 04:58] LABS: ALKALINE PHOSPHATASE 97 U/L (45-117); BILIRUBIN,TOTAL 0.2 mg/dL (0.2-1.0); TOTAL PROTEIN 5.5 g/dL (6.4-8.2)
[2019-09-09 08:58] VITALS: BP 106/70
[2019-09-09] MEDS: LACTULOSE 20 GM/30 ML UDC PO SCH ×3 (09:00→20:47)
[2019-09-09] MEDS ORDERED: DIVALPROEX 500 MG TABLET.DR PO SCH (09:00)
[2019-09-09] MEDS: ENOXAPARIN 40 MG/0.4 ML SQ SCH (09:30)
[2019-09-09] MEDS: OXCARBAZEPINE 150 MG TABLET PO SCH ×2 (13:22→20:47)
[2019-09-09 13:45] VITALS: BP 142/85
[2019-09-09] MEDS ORDERED: HALOPERIDOL 5 MG/ML IM PRN (15:00)
[2019-09-09 19:26] VITALS: BP 130/77
[2019-09-10 00:17] VITALS: BP 131/80
[2019-09-10 07:30] VITALS: BP 104/70
[2019-09-10] MEDS: ENOXAPARIN 40 MG/0.4 ML SQ SCH (09:11)
[2019-09-10] MEDS: OXCARBAZEPINE 150 MG TABLET PO SCH ×2 (09:11→21:17)
[2019-09-10 12:22] VITALS: BP 139/84
[2019-09-10] MEDS: LORazepam 2 MG/ML, 1ML IV PRN (15:14)
[2019-09-10 15:58] LABS: TROPONIN I < 0.015 ng/mL (0.000-0.045)
[2019-09-10 19:14] VITALS: BP 163/67
[2019-09-11 00:03] VITALS: BP 148/89
[2019-09-11] MEDS: LORazepam 2 MG/ML, 1ML IV PRN (03:34)
[2019-09-11 03:41] VITALS: BP 152/86
[2019-09-11 06:54] VITALS: BP 131/80
[2019-09-11] MEDS ORDERED: LORazepam 0.5MG TABLET PO PRN (09:30)
[2019-09-11] MEDS: ENOXAPARIN 40 MG/0.4 ML SQ SCH (09:30)
[2019-09-11] MEDS: OXCARBAZEPINE 150 MG TABLET PO SCH (10:00)
[2019-09-11 12:25] LABS: TROPONIN I < 0.015 ng/mL (0.000-0.045)
[2019-09-11 12:52] VITALS: BP 130/84
[2019-09-11] MEDS ORDERED: ARIPIPRAZOLE 10 MG TABLET PO ONE (13:30)
[2019-09-11] MEDS ORDERED: ARIPIPRAZOLE 400 MG INJ NC IM ONE (13:30)
[2019-09-11] MEDS ORDERED: OXCA150T18 PO (14:06)
[2019-09-11] MEDS ORDERED: ENOXAPARIN 30 MG/0.3 ML SQ SCH (21:30)
== END 2019-09-11 16:45 | DRG 817 ==
LOC: ED 02:38 → EDIP 03:14 → 4WST 08:00
PROVIDERS: ADMIT Internal Medicine; ATTEND Internal Medicine
DX: T42.6X2A Poisoning by other antiepileptic and sedative-hypnotic drugs, intentional self-harm, initial encounter (principal); F32.9 Major depressive disorder, single episode, unspecified; I10 Essential (primary) hypertension; R07.89 Other chest pain; F41.9 Anxiety disorder, unspecified; E66.01 Morbid (severe) obesity due to excess calories; J18.9 Pneumonia, unspecified organism; F10.10 Alcohol abuse, uncomplicated; R56.9 Unspecified convulsions; K21.9 Gastro-esophageal reflux disease without esophagitis; G92 Toxic encephalopathy; K52.9 Noninfective gastroenteritis and colitis, unspecified; F25.9 Schizoaffective disorder, unspecified; Y92.89 Other specified places as the place of occurrence of the external cause; Z91.14 Patient's other noncompliance with medication regimen; Z88.8 Allergy status to other drugs, medicaments and biological substances
CPT/HCPCS: 36415; 74177; 80053; 80061; 80164; 80307; 81001; 82140; 83036; 83735; 84439; 84443; 84484; 85025; 85379; 87086; 93005; 96361; 96374; 96375; 96376; 99285; G0378; J1650; J2405; Q9967; J2060; J2270; J7030

== ENCOUNTER 2019-10-02 23:25 | Emergency (ER) | payer MEDICAID ==
[~2019-10-02] VITALS: Ht 180.3 cm; Wt 150.1 kg
[~2019-10-02 23:25] MED LIST changes: +OXCA150T18 PO
--- NOTE | 2019-10-02 23:42 | NUR ---
Pt states he was dx w/ a "really bad kidney infection." about a month ago and sent home w/ cipro and flagyl. States getting a rash and a "really bad reaction" to the abx and not attempting to change abx. C/o LRQ abd painxmultiple hours today. Denies radiation to flank. Denies hematuria or futher gi/gu s/s. Denies fevers or weakness fatigue over last month. Fresh vitals obtained. VSS. UA gathered and sent to lab. at bedside for assessment.
[2019-10-02 23:44] VITALS: BP 148/75
[2019-10-03 00:19] LABS: ALANINE AMINOTRANSFERASE 42 U/L (12-78); ALBUMIN 3.7 g/dL (3.4-5.0); ANION GAP 7 mmol/L (5-15); CALCIUM 8.8 mg/dL (8.5-10.1); CHLORIDE 112 mmol/L (98-107); CREATININE 1.15 mg/dL (0.7-1.3)
[2019-10-03 00:21] LABS: ALKALINE PHOSPHATASE 108 U/L (45-117); BILIRUBIN,TOTAL 0.2 mg/dL (0.2-1.0); TOTAL PROTEIN 6.9 g/dL (6.4-8.2)
[2019-10-03 00:22] LABS: BASOPHILS # (AUTO) 0.06 x10^3/uL (0-0.1); BASOPHILS % (AUTO) 1 % (0-1); EOSINOPHILS # (AUTO) 0.18 x10^3/uL (0-0.4); EOSINOPHILS % (AUTO) 2 % (1-7); LYMPHOCYTES # (AUTO) 2.31 x10^3/uL (1-3.4); LYMPHOCYTES % (AUTO) 24 % (22-44); MD NO; MEAN CORPUSCULAR HGB CONC 32.3 g/dL (33.2-36.2); MEAN CORPUSCULAR VOLUME 89.6 fL (81-97); MEAN PLATELET VOLUME 8.8 fL (7.4-10.4); MONOCYTES # (AUTO) 0.85 x10^3/uL (0.2-0.8); MONOCYTES % (AUTO) 9 % (2-9); NEUTROPHILS # (AUTO) 6.19 x10^3/uL (1.8-6.8); NEUTROPHILS % (AUTO) 65 % (42-75); PLATELET COUNT 268 x10^3/uL (130-400); RED BLOOD COUNT 4.71 x10^6/uL (4.38-5.82); RED CELL DISTRIBUTION WIDTH 13.7 % (9.4-14.8)
[2019-10-03 00:23] LABS: MICROSCOPIC AUTO
--- NOTE | 2019-10-03 00:52 | NUR ---
at bedside for recheck.
== END 2019-10-03 01:13 | disposition home or self-care (01) ==
LOC: ED 23:54
DX: N30.00 Acute cystitis without hematuria (principal); R10.31 Right lower quadrant pain; I10 Essential (primary) hypertension; K21.9 Gastro-esophageal reflux disease without esophagitis
CPT/HCPCS: 36415; 74176; 80053; 81001; 83690; 85025; 87086; 99284

== ENCOUNTER 2019-10-08 19:20 | Emergency (ER) | payer MEDICAID ==
[~2019-10-08] VITALS: Ht 185.4 cm; Wt 130.0 kg
--- NOTE | 2019-10-08 19:28 | NUR ---
[facility] [phone]
--- NOTE | 2019-10-08 20:26 | NUR ---
PATIENT GIVEN FOOD, AND HYDRATION PER REQUEST. PATIENT DENIES ANY FURTHER NEEDS AT THIS TIME. SITTER WITHIN VIEW OF PATIENT. WILL CONTINUE TO MONITOR.
[2019-10-08 20:33] LABS: BASOPHILS # (AUTO) 0.04 x10^3/uL (0-0.1); BASOPHILS % (AUTO) 0 % (0-1); EOSINOPHILS # (AUTO) 0.13 x10^3/uL (0-0.4); EOSINOPHILS % (AUTO) 1 % (1-7); LYMPHOCYTES # (AUTO) 1.75 x10^3/uL (1-3.4); LYMPHOCYTES % (AUTO) 17 % (22-44); MD NO; MEAN CORPUSCULAR HEMOGLOBIN 29.1 pg (27.5-34.5); MEAN CORPUSCULAR HGB CONC 32.6 g/dL (33.2-36.2); MEAN CORPUSCULAR VOLUME 89.4 fL (81-97); MEAN PLATELET VOLUME 8.4 fL (7.4-10.4); MONOCYTES # (AUTO) 0.92 x10^3/uL (0.2-0.8); MONOCYTES % (AUTO) 9 % (2-9); NEUTROPHILS # (AUTO) 7.67 x10^3/uL (1.8-6.8); NEUTROPHILS % (AUTO) 73 % (42-75); PLATELET COUNT 269 x10^3/uL (130-400); RED BLOOD COUNT 4.89 x10^6/uL (4.38-5.82); RED CELL DISTRIBUTION WIDTH 14.1 % (9.4-14.8)
[2019-10-08 20:43] LABS: AMPHETAMINE SCREEN, URINE Negative (Negative); BARBITURATE SCREEN, URINE Negative (Negative); BENZODIAZEPINE SCREEN, URINE Negative (Negative); CANNABINOID SCREEN, URINE Negative (Negative); COCAINE SCREEN, URINE Negative (Negative); METHADONE SCREEN, URINE Negative (Negative); OPIATE SCREEN, URINE Negative (Negative)
[2019-10-08 20:45] LABS: ALBUMIN 3.7 g/dL (3.4-5.0); ANION GAP 7 mmol/L (5-15); CALCIUM 8.8 mg/dL (8.5-10.1); CHLORIDE 110 mmol/L (98-107)
[2019-10-08 20:46] LABS: SALICYLATE LEVEL < 1.7 mg/dL (2.8-20.0)
[2019-10-08 20:48] LABS: ALANINE AMINOTRANSFERASE 71 U/L (12-78); ALKALINE PHOSPHATASE 84 U/L (45-117); BILIRUBIN,TOTAL 0.5 mg/dL (0.2-1.0); CREATININE 1.18 mg/dL (0.7-1.3)
--- NOTE | 2019-10-08 21:30 | NUR ---
PATIENT RESTING IN BED, EVEN-UNLABORED RESPIRATIONS NOTED. NO ADDITIONAL NEEDS AT THIS TIME. SITTER WITHIN VIEW OF PATIENT. WILL CONTINUE TO MONITOR.
--- NOTE | 2019-10-08 22:30 | NUR ---
PATIENT RESTING IN BED, EVEN-UNLABORED RESPIRATIONS NOTED. NO ADDITIONAL NEEDS AT THIS TIME. SITTER WITHIN VIEW OF PATIENT. WILL CONTINUE TO MONITOR.
--- NOTE | 2019-10-09 00:30 | NUR ---
PATIENT RESTING IN BED, EVEN-UNLABORED RESPIRATIONS NOTED. NO ADDITIONAL NEEDS AT THIS TIME. SITTER WITHIN VIEW OF PATIENT. WILL CONTINUE TO MONITOR.
--- NOTE | 2019-10-09 01:30 | NUR ---
PATIENT RESTING IN BED, EVEN-UNLABORED RESPIRATIONS NOTED. NO ADDITIONAL NEEDS AT THIS TIME. SITTER WITHIN VIEW OF PATIENT. WILL CONTINUE TO MONITOR.
--- NOTE | 2019-10-09 02:06 | NUR ---
[facility] unit physically full at this time. Patient with Medicaid Traditional. Packet faxed to [facility], and [facility]. Conformation received.
--- NOTE | 2019-10-09 02:30 | NUR ---
PATIENT RESTING IN BED, EVEN-UNLABORED RESPIRATIONS NOTED. NO ADDITIONAL NEEDS AT THIS TIME. SITTER WITHIN VIEW OF PATIENT. WILL CONTINUE TO MONITOR.
--- NOTE | 2019-10-09 03:32 | NUR ---
PATIENT RESTING IN BED, EVEN-UNLABORED RESPIRATIONS NOTED. NO ADDITIONAL NEEDS AT THIS TIME. SITTER WITHIN VIEW OF PATIENT. WILL CONTINUE TO MONITOR.
--- NOTE | 2019-10-09 04:36 | NUR ---
PATIENT RESTING IN BED, EVEN-UNLABORED RESPIRATIONS NOTED. NO ADDITIONAL NEEDS AT THIS TIME. SITTER WITHIN VIEW OF PATIENT. WILL CONTINUE TO MONITOR.
--- NOTE | 2019-10-09 05:30 | NUR ---
PATIENT RESTING IN BED, EVEN-UNLABORED RESPIRATIONS NOTED. NO ADDITIONAL NEEDS AT THIS TIME. SITTER WITHIN VIEW OF PATIENT. WILL CONTINUE TO MONITOR.
--- NOTE | 2019-10-09 06:27 | NUR ---
VITAL SIGNS UPDATED, NO CHANGE IN PATIENT STATUS. PATIENT MOVED TO HOSPITAL BED TO IMPROVE PATIENT COMFORT. UPDATED PATIENT ON PLAN OF CARE. SITTER WITHIN VIEW OF PATIENT. WILL CONTINUE TO MONITOR.
--- NOTE | 2019-10-09 06:50 | NUR ---
REPORT GIVEN TO REGLA SCHMID
--- NOTE | 2019-10-09 07:05 | NUR ---
SBAR HAND-OFF REPORT RECEIVED FROM REGLA MEREDITH. ASSUMING CARE OF PATIENT. PT IS SLEEPING AT THIS TIME. CHEST RISE AND FALL OBSERVED. PATIENT REMAINS UNDER CONSTANT SUPERVISION OF SITTER AND REMAINS SAFE.
--- NOTE | 2019-10-09 10:02 | NUR ---
PATIENT MOVED TO ROOM 2. SECURITY DOORS DOWN FOR PATIENT SAFETY. CALL BUTTON WITHIN REACH. SBAR HAND-OFF GIVEN TO REGLA BORGES.
--- NOTE | 2019-10-09 10:05 | NUR ---
SBAR RPT FROM REGLA JERNIGAN. ASSUMED PT CARE. ROOM SECURED AND SITTER AT DOORWAY. PT VSS NOTED. CALL LIGHT W/I REACH, PT DENIES ANY NEEDS AT THIS TIME.
[2019-10-09 10:15] VITALS: BP 120/73
[2019-10-09] MEDS ORDERED: OXCARBAZEPINE 150 MG TABLET PO SCH (12:00)
[2019-10-09] MEDS ORDERED: ARIPIPRAZOLE 10 MG TABLET ONE (12:30)
--- NOTE | 2019-10-09 12:34 | NUR ---
PT AT BEDSIDE. JC, SLITTER AND REWINDER MACHINE OPERATOR AT BEDSIDE.
--- NOTE | 2019-10-09 12:34 | NUR ---
TAYLOR GREENE DISCUSSED PLAN FOR PT D/C HOME TODAY WITH . MEAL TRAY PROVIDED, AT BEDSIDE.
[2019-10-09] MEDS ORDERED: ARIP10TA33 PO (12:38)
[2019-10-09] MEDS ORDERED: ARIPIPRAZOLE 10 MG TABLET PO SCH (13:00)
--- NOTE | 2019-10-09 13:07 | NUR ---
ALL CLOTHES AND BELONGINGS RTD TO PT.
--- NOTE | 2019-10-09 13:21 | NUR ---
PT D/C HOME WITH .
--- NOTE | 2019-10-09 13:21 | NUR ---
Patient/Caregiver given discharge instructions and they have confirmed that they understand the instructions. Patient ambulatory with steady gait.
== END 2019-10-09 13:22 | disposition home or self-care (01) ==
LOC: ED 21:52
DX: S51.812A Laceration without foreign body of left forearm, initial encounter (principal); R45.851 Suicidal ideations; F25.1 Schizoaffective disorder, depressive type; K21.9 Gastro-esophageal reflux disease without esophagitis; I10 Essential (primary) hypertension; W45.8XXA Other foreign body or object entering through skin, initial encounter; Y93.89 Activity, other specified; Y92.89 Other specified places as the place of occurrence of the external cause; Y99.8 Other external cause status
CPT/HCPCS: 36415; 80053; 80307; 85025; 99284

== ENCOUNTER 2019-11-15 00:03 | Emergency (ER) | payer MEDICAID ==
[~2019-11-15] VITALS: Ht 180.3 cm; Wt 150.6 kg
--- NOTE | 2019-11-15 00:20 | NUR ---
EKG IN TRIAGE
[2019-11-15 01:00] LABS: BASOPHILS # (AUTO) 0.04 x10^3/uL (0-0.1); BASOPHILS % (AUTO) 0 % (0-1); EOSINOPHILS % (AUTO) 2 % (1-7); LYMPHOCYTES # (AUTO) 2.37 x10^3/uL (1-3.4); LYMPHOCYTES % (AUTO) 24 % (22-44); MD NO; MEAN CORPUSCULAR HEMOGLOBIN 29.5 pg (27.5-34.5); MEAN CORPUSCULAR HGB CONC 33.3 g/dL (33.2-36.2); MEAN PLATELET VOLUME 8.7 fL (7.4-10.4); MONOCYTES # (AUTO) 0.91 x10^3/uL (0.2-0.8); MONOCYTES % (AUTO) 9 % (2-9); NEUTROPHILS % (AUTO) 64 % (42-75); PLATELET COUNT 259 x10^3/uL (130-400); RED BLOOD COUNT 5.17 x10^6/uL (4.38-5.82); RED CELL DISTRIBUTION WIDTH 13.5 % (9.4-14.8)
[2019-11-15 01:04] LABS: ALBUMIN 3.9 g/dL (3.4-5.0); ANION GAP 6 mmol/L (5-15); CALCIUM 9.2 mg/dL (8.5-10.1); CHLORIDE 110 mmol/L (98-107)
[2019-11-15 01:07] LABS: ALANINE AMINOTRANSFERASE 75 U/L (12-78); ALKALINE PHOSPHATASE 84 U/L (45-117); BILIRUBIN,TOTAL 0.5 mg/dL (0.2-1.0); CREATININE 1.08 mg/dL (0.7-1.3); TOTAL PROTEIN 7.4 g/dL (6.4-8.2)
--- NOTE | 2019-11-15 01:48 | NUR ---
PT REPORTS LLQ ABDOMINAL PAIN STARTING YESTERDAY, DOG JUMPED ON HIM AND PAIN INCREASED AND STARTED RADIATING TO LEFT CHEST. REPORTS SUDDEN ONSET SHARP PAIN TO CHEST. DENIES N/V, ALSO REPORTS DIZZINESS. DENIES ANY OTHER MEDICAL C/O AT THIS TIME. EKG DONE IN TRIAGE, PT PLACED ON ALL MONITORING, CALL LIGHT WITHIN REACH, ALL SAFETY MEASURES IN PLACE.
[2019-11-15] MEDS ORDERED: ONDANSETRON ODT 4 MG ONE (02:13)
[2019-11-15] MEDS ORDERED: HYDROcodone/APAP 5/325 TABLET ONE (02:13)
--- NOTE | 2019-11-15 02:25 | NUR ---
PT MEDICATED PER MAR, UPDATED ON POC. CALL LIGHT WITHIN REACH, ALL SAFETY MEASURES IN PLACE.
[2019-11-15] MEDS ORDERED: ONDANSETRON ODT 4 MG PO ONE (02:30)
[2019-11-15] MEDS ORDERED: HYDROcodone/APAP 5/325 TABLET PO ONE (02:30)
[2019-11-15 02:49] LABS: MICROSCOPIC INDICATED
[2019-11-15 03:21] VITALS: BP 127/68
--- NOTE | 2019-11-15 03:21 | NUR ---
PT UPDATED ON POC, MONITORING IN PLACE, CALL LIGHT WITHIN REACH, ROOM DIMMED FOR PT COMFORT.
== END 2019-11-15 04:08 | disposition home or self-care (01) ==
LOC: ED 03:26
DX: R10.32 Left lower quadrant pain (principal); R00.0 Tachycardia, unspecified; R05 Cough; I10 Essential (primary) hypertension; K21.9 Gastro-esophageal reflux disease without esophagitis
CPT/HCPCS: 36415; 74022; 80053; 81001; 83690; 85025; 87086; 93005; 99285; Q0162

== ENCOUNTER 2019-12-04 01:19 | Emergency (ER) | payer MEDICAID ==
[~2019-12-04] VITALS: Ht 180.3 cm; Wt 134.1 kg
--- NOTE | 2019-12-04 01:35 | NUR ---
PT BIB EMS WITH CP "ALL DAY TODAY", PT REPORTS DIZZINESS AND SYNCOPE. DENIES HEAD TRAUMA. PT REPORTS HX OF SAME. PT CONNECTED TO ALL MONITORING, EKG DONE ON ARRIVAL TO ED. ALL SAFETY MEASURES IN PLACE.
--- NOTE | 2019-12-04 02:31 | NUR ---
PT RESTING ON GURNEY WITH MONITORING IN PLACE, CALL LIGHT WITHIN REACH. ROOM DIMMED FOR PT COMFORT.
[2019-12-04 02:37] LABS: BASOPHILS % (AUTO) 1 % (0-1); EOSINOPHILS % (AUTO) 5 % (1-7); LYMPHOCYTES % (AUTO) 29 % (22-44); MEAN CORPUSCULAR HEMOGLOBIN 28.9 pg (27.5-34.5); MEAN CORPUSCULAR HGB CONC 32.8 g/dL (33.2-36.2); MONOCYTES % (AUTO) 9 % (2-9); NEUTROPHILS % (AUTO) 56 % (42-75); PLATELET COUNT 223 x10^3/uL (130-400); RED BLOOD COUNT 4.77 x10^6/uL (4.38-5.82); RED CELL DISTRIBUTION WIDTH 13.4 % (9.4-14.8)
[2019-12-04 02:40] LABS: MD NO
[2019-12-04 02:44] LABS: ALBUMIN 3.5 g/dL (3.4-5.0); ANION GAP 4 mmol/L (5-15); CHLORIDE 111 mmol/L (98-107); CREATININE 0.92 mg/dL (0.7-1.3)
[2019-12-04 02:47] LABS: TROPONIN I < 0.015 ng/mL (0.000-0.045)
[2019-12-04 03:24] VITALS: BP 145/82
== END 2019-12-04 03:27 | disposition home or self-care (01) ==
LOC: ED 01:42
DX: R07.89 Other chest pain (principal); I10 Essential (primary) hypertension
CPT/HCPCS: 36415; 71045; 80048; 82040; 84484; 85025; 93005; 99285

== ENCOUNTER 2020-03-07 02:19 | Emergency (ER) | payer MEDICAID ==
[~2020-03-07] VITALS: Ht 180.3 cm; Wt 140.0 kg
--- NOTE | 2020-03-07 02:33 | NUR ---
TASK RN: FINA HERR FOR C/O SI. HIS PLAN IS TO OVERDOSE ON HIS PSYCH MEDS AT HOME. ENCOURAGED BY HIS TO BE SEEN FOR HELP. HX OF SUICIDE ATTEMPT BY OVERDOSING ON PSYCH MEDS, PT STATES APPROX 3 MONTHS AGO. WAS SEEN HERE ON A L2K FOR THIS OD. PT CALM AND COOPERATIVE UPON ARRIVAL. PT PLACED IN SECURE ROOM WITH GUARD RAILS DOWN. ALL BELONGINGS PLACED IN BELONGING BAGS AND STORED FOR SAFTEY. SITTER AT DOORWAY FOR FREQUENT CHECKS. PT AMBULATED TO THE BATHROOM WITH A STEADY GAIT FOR URINE SAMPLE.
--- NOTE | 2020-03-07 02:54 | NUR ---
REPORT TO PRIMARY RN AGAPITO
[2020-03-07 03:22] LABS: AMPHETAMINE SCREEN, URINE Negative (Negative); BARBITURATE SCREEN, URINE Negative (Negative); BENZODIAZEPINE SCREEN, URINE Negative (Negative); CANNABINOID SCREEN, URINE Negative (Negative); COCAINE SCREEN, URINE Negative (Negative); METHADONE SCREEN, URINE Negative (Negative); OPIATE SCREEN, URINE Negative (Negative)
[2020-03-07 03:32] LABS: BASOPHILS % (AUTO) 1 % (0-1); EOSINOPHILS % (AUTO) 4 % (1-7); LYMPHOCYTES % (AUTO) 23 % (22-44); MEAN CORPUSCULAR HEMOGLOBIN 29.9 pg (27.5-34.5); MEAN PLATELET VOLUME 8.6 fL (7.4-10.4); MONOCYTES % (AUTO) 9 % (2-9); NEUTROPHILS % (AUTO) 63 % (42-75); PLATELET COUNT 252 x10^3/uL (130-400); RED BLOOD COUNT 5.17 x10^6/uL (4.38-5.82); RED CELL DISTRIBUTION WIDTH 13.7 % (9.4-14.8)
[2020-03-07 03:44] LABS: ALANINE AMINOTRANSFERASE 78 U/L (12-78); ALBUMIN 3.7 g/dL (3.4-5.0); ANION GAP 5 mmol/L (5-15); CALCIUM 8.9 mg/dL (8.5-10.1); CHLORIDE 110 mmol/L (98-107); CREATININE 0.99 mg/dL (0.7-1.3); MD NO; SALICYLATE LEVEL 2.2 mg/dL (2.8-20.0)
[2020-03-07 03:58] LABS: ALKALINE PHOSPHATASE 104 U/L (45-117); BILIRUBIN,TOTAL 0.3 mg/dL (0.2-1.0); TOTAL PROTEIN 6.9 g/dL (6.4-8.2)
[2020-03-07 04:11] LABS: FREE T4 (FREE THYROXINE) 1.17 ng/dL (0.76-1.46)
--- NOTE | 2020-03-07 04:29 | NUR ---
PT GIVEN SANDWHICH AND BLANKETS. RESTING COMFORTABLY. ROBOT IN ROOM FOR TELE PYSCH
--- NOTE | 2020-03-07 05:43 | NUR ---
pt done with krys marshall. pleasant affect, resting comfortably
--- NOTE | 2020-03-07 06:08 | NUR ---
PT UP TO USE PHONE TO UPDATE ON POC. RECOMENDED ADMIT PER TELE PYSCH CONSULT. PT HAS STEADY GAIT TO PHONE
--- NOTE | 2020-03-07 06:11 | NUR ---
TP: PACKET FAXED TO [facility], [facility], [place], [place], [place]
--- NOTE | 2020-03-07 06:53 | NUR ---
REPORT GIVEN TO MAITE ARAUZ
--- NOTE | 2020-03-07 06:56 | NUR ---
Anca with [facility] called-pt has no in patient benefits and will have to decline unless pt can self pay.
--- NOTE | 2020-03-07 07:24 | NUR ---
Report from Shanice RN. Pt resting in bed with eyes closed, resp even and unlabored, TOMI. Pt awakens easily to this RN entering room. POC discussed, pt denies other needs. Empty sandwich tray and soda can removed from room and thrown away. Room is secured, sitter within eyesight of pt, all safety measures observed.
--- NOTE | 2020-03-07 07:27 | NUR ---
Completed Legal 2000 form visualized in pt's chart by this RN.
--- NOTE | 2020-03-07 08:11 | NUR ---
Requested rapid Covid test for possible admit to [facility]
--- NOTE | 2020-03-07 08:12 | NUR ---
Breakfast tray delivered to pt with SI precautions observed.
--- NOTE | 2020-03-07 08:31 | NUR ---
Pt ate 80% of breakfast tray. Tray cleared. Pt swabbed for COVID per [facility] protocol. Pt tolerated well. Specimen labeled at bedside, walked to lab. Pt's called, this RN discussed POC with her with pt's permission. Pt updated on this RN's conversation with his . Pt ambulatory with steady gait to phone in the hallway to call his accompanied by sitter. Pt denies other needs.
--- NOTE | 2020-03-07 09:57 | NUR ---
Pt resting in bed with eyes closed, resp even and unlabored, NADN.
--- NOTE | 2020-03-07 10:44 | NUR ---
Report called to Josefina ARAUZ at [facility]. Floor ready for pt transport.
[2020-03-07 10:53] VITALS: BP 142/83
--- NOTE | 2020-03-07 10:55 | NUR ---
Updated pt on POC. Called pt's to advise her of pt transport to [facility] with pt's permission. No answer, message left.
== END 2020-03-07 11:23 ==
LOC: ED 04:48
DX: F32.1 Major depressive disorder, single episode, moderate (principal); Z20.822 Contact with and (suspected) exposure to COVID-19; F20.9 Schizophrenia, unspecified; R45.851 Suicidal ideations; K21.9 Gastro-esophageal reflux disease without esophagitis; I10 Essential (primary) hypertension; F17.210 Nicotine dependence, cigarettes, uncomplicated
CPT/HCPCS: 36415; 80053; 80299; 80307; 80320; 80329; 84439; 84443; 85025; 87426; 99285; 99406; G0480

== ENCOUNTER 2020-03-07 10:15 | Inpatient (IN) | payer MEDICAID ==
[~2020-03-07] VITALS: Ht 180.3 cm; Wt 124.8 kg
[2020-03-07] MEDS ORDERED: DOCUSATE 100 MG CAPSULE PO PRN (10:30)
[2020-03-07] MEDS ORDERED: ONDANSETRON ODT 4 MG PO PRN (10:30)
[2020-03-07] MEDS ORDERED: ACETAMINOPHEN 325 MG TABLET PO PRN (10:30)
[2020-03-07] MEDS ORDERED: POLYETHYLENE GLYCOL 17 GM PACKET PO PRN (10:30)
[2020-03-07] MEDS ORDERED: NICOTINE 14MG/24 HR PATCH.TD24 TD SCH (10:30)
[2020-03-07 11:21] VITALS: BP 148/97
[2020-03-07] MEDS ORDERED: PLEASE ENTER HEIGHT AND WEIGHT MC SCH (11:30)
[2020-03-07 17:14] LABS: MICROSCOPIC AUTO
[2020-03-07 19:30] VITALS: BP 110/71
[2020-03-07] MEDS: TRAZODONE 100MG TABLET PO SCH (21:08)
[2020-03-08 06:44] LABS: CHOL/HDL RATIO 4.8; LDL/HDL RATIO 2.7 (0.5-3.0)
[2020-03-08 07:33] VITALS: BP 124/78
[2020-03-08] MEDS: LORazepam 1MG TABLET PO PRN ×2 (08:30→18:14)
[2020-03-08] MEDS: ARIPIPRAZOLE 15 MG TABLET PO SCH (08:30)
[2020-03-08] MEDS: NICOTINE 14MG/24 HR PATCH.TD24 TD SCH (08:32)
[2020-03-08 09:23] LABS: TROPONIN I < 0.015 ng/mL (0.000-0.045)
[2020-03-08 13:01] LABS: TROPONIN I < 0.015 ng/mL (0.000-0.045)
[2020-03-08] MEDS: PROPRANOLOL 10 MG TABLET PO SCH (18:11)
[2020-03-08 19:30] VITALS: BP 138/84
[2020-03-08] MEDS: TRAZODONE 100MG TABLET PO SCH (20:02)
[2020-03-09 07:15] VITALS: BP 119/73
[2020-03-09] MEDS: PROPRANOLOL 10 MG TABLET PO SCH ×2 (08:49→18:01)
[2020-03-09] MEDS: ARIPIPRAZOLE 15 MG TABLET PO SCH (08:49)
[2020-03-09] MEDS: NICOTINE 14MG/24 HR PATCH.TD24 TD SCH (08:50)
[2020-03-09] MEDS: TRAZODONE 100MG TABLET PO SCH (19:39)
[2020-03-09 20:00] VITALS: BP 126/80
== END 2020-03-10 06:43 | disposition home or self-care (01) | DRG 750 ==
LOC: 3E 11:00
PROVIDERS: ADMIT Psychiatry & Neurology Psychosomatic Medicine; ATTEND Psychiatry & Neurology Psychosomatic Medicine
DX: F25.0 Schizoaffective disorder, bipolar type (principal); E66.9 Obesity, unspecified; F41.9 Anxiety disorder, unspecified; G43.909 Migraine, unspecified, not intractable, without status migrainosus; G47.00 Insomnia, unspecified; I10 Essential (primary) hypertension; R45.851 Suicidal ideations; Z79.899 Other long term (current) drug therapy; Z68.38 Body mass index [BMI] 38.0-38.9, adult; F17.200 Nicotine dependence, unspecified, uncomplicated; Z79.891 Long term (current) use of opiate analgesic
CPT/HCPCS: 36415; 71045; 80061; 81001; 84484; 93005

== ENCOUNTER 2020-03-26 14:22 | Emergency (ER) | payer MEDICAID ==
[~2020-03-26] VITALS: Ht 180.3 cm; Wt 159.3 kg
--- NOTE | 2020-03-26 15:10 | NUR ---
Pt ambulated with steady gait to room 15 from [facility]
[2020-03-26] MEDS ORDERED: MAALOX/HYOSCYAMINE/LIDOCAINE 45 ML BTL ONE (15:23)
[2020-03-26] MEDS ORDERED: METF500T17 PO (15:29)
[2020-03-26] MEDS ORDERED: MAALOX/HYOSCYAMINE/LIDOCAINE 45 ML BTL PO ONE (15:30)
--- NOTE | 2020-03-26 15:30 | NUR ---
PT IS A 29M COMPLAINING OF EPIGASTRIC PAIN X 4 DAYS. DENIES NAUSEA AND VOMITING. PROVIDER AT BEDSIDE FOR EVAL AND POC. CYCLING VITALS AND CONTINUOUS SP02. CALL LIGHT WITHIN REACH.
[2020-03-26 15:42] LABS: BASOPHILS % (AUTO) 1 % (0-1); EOSINOPHILS % (AUTO) 3 % (1-7); LYMPHOCYTES % (AUTO) 23 % (22-44); MD NO; MEAN CORPUSCULAR HEMOGLOBIN 29.9 pg (27.5-34.5); MEAN CORPUSCULAR HGB CONC 33.8 g/dL (33.2-36.2); MEAN PLATELET VOLUME 8.2 fL (7.4-10.4); MONOCYTES % (AUTO) 10 % (2-9); NEUTROPHILS % (AUTO) 63 % (42-75); PLATELET COUNT 278 x10^3/uL (130-400); RED BLOOD COUNT 5.09 x10^6/uL (4.38-5.82)
[2020-03-26 15:53] LABS: ALANINE AMINOTRANSFERASE 63 U/L (12-78); ALBUMIN 3.6 g/dL (3.4-5.0); ANION GAP 8 mmol/L (5-15); CALCIUM 8.6 mg/dL (8.5-10.1); CHLORIDE 113 mmol/L (98-107)
[2020-03-26] MEDS ORDERED: FAMOTIDINE 20 MG TABLET ONE (15:53)
[2020-03-26 15:55] LABS: ALKALINE PHOSPHATASE 119 U/L (45-117); BILIRUBIN,TOTAL 0.3 mg/dL (0.2-1.0); TOTAL PROTEIN 6.8 g/dL (6.4-8.2)
--- NOTE | 2020-03-26 15:55 | NUR ---
PT STATED THE GI COCKTAIL DID NOT WORK. NOTIFIED PROVIDED AND MEDICATED PER ORDER. CALL LIGHT WITHIN REACH. NO NEEDS AT THIS TIME
[2020-03-26] MEDS ORDERED: FAMOTIDINE 20 MG TABLET PO ONE (16:00)
--- NOTE | 2020-03-26 16:08 | NUR ---
PT STATED HE FEELS LIKE THERE IS SOMETHING SITTING ON HIS CHEST. NOTIFIED THE PROVIDER. EKG COMPLETED
--- NOTE | 2020-03-26 16:34 | NUR ---
PT STILL COMPLAINS OF PAIN BUT MORE EPIGASTRIC THAN CHEST PAIN. PROVIDER HAS BEEN NOTIFIED. AWAITING DISPOSITION. CALL LIGHT WITHIN REACH.
[2020-03-26 17:45] VITALS: BP 165/89
--- NOTE | 2020-03-26 17:46 | NUR ---
Patient/Caregiver given discharge instructions and they have confirmed that they understand the instructions. Patient ambulatory with steady gait.
== END 2020-03-26 17:47 | disposition home or self-care (01) ==
LOC: ED 16:39
DX: K21.9 Gastro-esophageal reflux disease without esophagitis (principal); R10.13 Epigastric pain; F17.290 Nicotine dependence, other tobacco product, uncomplicated
CPT/HCPCS: 36415; 80053; 83690; 85025; 93005; 99284

== ENCOUNTER 2020-04-04 22:13 | Emergency (ER) | payer MEDICAID ==
[~2020-04-04] VITALS: Ht 180.3 cm; Wt 163.0 kg
[~2020-04-04 22:13] MED LIST changes: +METF500T17 PO
--- NOTE | 2020-04-04 22:24 | NUR ---
Patient BIB amb c/o RUQ abd pain x1 week with nausea and feeling of cold/sweaty x2 days. Patient states the pain is worse approx 30 min after eating. Patient denies vomiting or diarrhea; unknown fevers. Patient is in NAD. Respirations even and unlabored.
[2020-04-04 22:36] LABS: BASOPHILS % (AUTO) 1 % (0-1); EOSINOPHILS % (AUTO) 4 % (1-7); LYMPHOCYTES % (AUTO) 25 % (22-44); MEAN CORPUSCULAR HEMOGLOBIN 30.3 pg (27.5-34.5); MEAN CORPUSCULAR HGB CONC 34.4 g/dL (33.2-36.2); MEAN PLATELET VOLUME 8.9 fL (7.4-10.4); MONOCYTES % (AUTO) 8 % (2-9); NEUTROPHILS % (AUTO) 62 % (42-75); PLATELET COUNT 232 x10^3/uL (130-400); RED BLOOD COUNT 4.94 x10^6/uL (4.38-5.82); RED CELL DISTRIBUTION WIDTH 14.3 % (9.4-14.8)
[2020-04-04 22:39] LABS: MD NO
[2020-04-04 22:44] LABS: ALANINE AMINOTRANSFERASE 70 U/L (12-78); ALBUMIN 3.5 g/dL (3.4-5.0); ANION GAP 7 mmol/L (5-15); CALCIUM 8.6 mg/dL (8.5-10.1); CHLORIDE 110 mmol/L (98-107); CREATININE 1.04 mg/dL (0.7-1.3)
[2020-04-04 22:46] LABS: ALKALINE PHOSPHATASE 112 U/L (45-117); BILIRUBIN,TOTAL 0.3 mg/dL (0.2-1.0); TOTAL PROTEIN 6.7 g/dL (6.4-8.2)
[2020-04-04 23:40] VITALS: BP 155/76
--- NOTE | 2020-04-04 23:41 | NUR ---
Discharge instructions given. All questions and concerns addressed. Patient ambulatory with a steady gait. Belongings with patient.
== END 2020-04-04 23:42 | disposition home or self-care (01) ==
LOC: ED 22:20
DX: R10.11 Right upper quadrant pain (principal); R11.0 Nausea; I10 Essential (primary) hypertension; E11.9 Type 2 diabetes mellitus without complications; K21.9 Gastro-esophageal reflux disease without esophagitis; F17.200 Nicotine dependence, unspecified, uncomplicated
CPT/HCPCS: 36415; 76700; 80053; 83690; 85025; 99284

== ENCOUNTER 2020-07-18 18:37 | Emergency (ER) | payer MEDICAID ==
[~2020-07-18] VITALS: Ht 180.3 cm; Wt 142.0 kg
--- NOTE | 2020-07-18 19:50 | NUR ---
Pt in room with US already performed and awaiting radiologist reading. superintendent distribution completed. Pt HOB elevated to position of comfort. Spouse at bedside with pt at this time.
--- NOTE | 2020-07-18 20:15 | NUR ---
in for recheck at this time.
[2020-07-18] MEDS ORDERED: CYCL5TAB PO (20:17)
[2020-07-18] MEDS ORDERED: BUSP5TAB2 PO (20:17)
[2020-07-18] MEDS ORDERED: CARI3CAP PO (20:17)
[2020-07-18] MEDS ORDERED: TRAZ300T2 PO (20:17)
[2020-07-18] MEDS ORDERED: RIVAROXABAN 20 MG TABLET ONE (20:20)
--- NOTE | 2020-07-18 20:23 | NUR ---
PO med given. Awaiting d/c paperwork.
[2020-07-18] MEDS ORDERED: RIVAROXABAN 20 MG TABLET PO ONE (20:30)
[2020-07-18 20:52] VITALS: BP 133/79
== END 2020-07-18 20:55 | disposition home or self-care (01) ==
LOC: ED 20:15
DX: I82.431 Acute embolism and thrombosis of right popliteal vein (principal); M25.561 Pain in right knee; K21.9 Gastro-esophageal reflux disease without esophagitis; E11.9 Type 2 diabetes mellitus without complications; I10 Essential (primary) hypertension; F17.210 Nicotine dependence, cigarettes, uncomplicated
CPT/HCPCS: 99284

== ENCOUNTER 2020-07-19 19:00 | Emergency (ER) | payer MEDICAID ==
[~2020-07-19] VITALS: Ht 180.3 cm; Wt 143.0 kg
[~2020-07-19 19:00] MED LIST changes: +BUSP5TAB2 PO; +CARI3CAP PO; +CYCL5TAB PO; +TRAZ300T2 PO
[2020-07-19 19:01] VITALS: BP 140/108
--- NOTE | 2020-07-19 19:26 | NUR ---
SENIOR PHYSICAL THERAPIST: PT. TO ROOM FROM LOBBY AT THIS TIME.
[2020-07-19] MEDS ORDERED: HYDROcodone/APAP 5/325 TABLET PO ONE (20:00)
[2020-07-19] MEDS ORDERED: RIVAROXABAN 15 MG TABLET PO ONE (20:00)
[2020-07-19] MEDS ORDERED: HYDROcodone/APAP 5/325 TABLET ONE (20:09)
== END 2020-07-19 20:53 | disposition home or self-care (01) ==
LOC: ED 19:50
DX: I82.431 Acute embolism and thrombosis of right popliteal vein (principal); M79.661 Pain in right lower leg; E11.9 Type 2 diabetes mellitus without complications; Z86.711 Personal history of pulmonary embolism
CPT/HCPCS: 99283

== ENCOUNTER 2020-07-29 19:32 | Emergency (ER) | payer MEDICAID ==
[~2020-07-29] VITALS: Ht 180.3 cm; Wt 164.7 kg
[2020-07-29 19:53] VITALS: BP 152/92
--- NOTE | 2020-07-29 21:01 | NUR ---
REPORT TO MILTON ARAUZ. PT IS UP FOR RECHECK AT THIS TIME. RESTING ON [employer] W/ CALL LIGHT IN REACH AND SIDE RAILS UPX2. RESP EVEN AND UNLABORED, TOMI.
--- NOTE | 2020-07-29 21:07 | NUR ---
REPORT FROM INES ARAUZ
[2020-07-29] MEDS ORDERED: HYDROcodone/APAP 5/325 TABLET ONE (21:25)
[2020-07-29] MEDS ORDERED: HYDROcodone/APAP 5/325 TABLET PO ONE (21:30)
== END 2020-07-29 21:34 | disposition home or self-care (01) ==
LOC: ED 21:20
DX: S60.222A Contusion of left hand, initial encounter (principal); F17.210 Nicotine dependence, cigarettes, uncomplicated; I10 Essential (primary) hypertension; K21.9 Gastro-esophageal reflux disease without esophagitis; Z86.718 Personal history of other venous thrombosis and embolism
CPT/HCPCS: 99284; 99406

== ENCOUNTER 2020-08-12 17:38 | Emergency (ER) | payer MEDICAID ==
[~2020-08-12] VITALS: Ht 180.3 cm; Wt 165.6 kg
[2020-08-12] MEDS ORDERED: SODIUM CHLORIDE 0.9% 1,000ML IVBOLUS ONE (21:00)
[2020-08-12] MEDS ORDERED: MORPHINE SULFATE 4 MG/ML, 1ML IVPush PRN (21:00)
[2020-08-12] MEDS ORDERED: ONDANSETRON 2MG/ML, 2ML IVPush ONE (21:00)
[2020-08-12 21:14] LABS: BASOPHILS % (AUTO) 0 % (0-1); EOSINOPHILS % (AUTO) 4 % (1-7); LYMPHOCYTES % (AUTO) 22 % (22-44); MEAN CORPUSCULAR HEMOGLOBIN 30.6 pg (27.5-34.5); MEAN PLATELET VOLUME 8.4 fL (7.4-10.4); MONOCYTES % (AUTO) 9 % (2-9); NEUTROPHILS % (AUTO) 65 % (42-75); PLATELET COUNT 228 x10^3/uL (130-400); RED CELL DISTRIBUTION WIDTH 13.7 % (9.4-14.8)
[2020-08-12] MEDS ORDERED: ONDANSETRON 2MG/ML, 2ML ONE (21:15)
[2020-08-12] MEDS ORDERED: MORPHINE SULFATE 4 MG/ML, 1ML ONE (21:15)
[2020-08-12 21:28] LABS: ALANINE AMINOTRANSFERASE 91 U/L (12-78); ALBUMIN 3.4 g/dL (3.4-5.0); ANION GAP 5 mmol/L (5-15); CHLORIDE 111 mmol/L (98-107); CREATININE 0.84 mg/dL (0.7-1.3)
[2020-08-12 21:30] LABS: ALKALINE PHOSPHATASE 100 U/L (45-117); BILIRUBIN,TOTAL 0.3 mg/dL (0.2-1.0); TOTAL PROTEIN 6.8 g/dL (6.4-8.2)
[2020-08-12 21:52] LABS: MICROSCOPIC AUTO
[2020-08-12] MEDS ORDERED: OMNIPAQUE 350 MG/ML, 150 ML BOTTLE ONE (22:19)
[2020-08-12 23:09] VITALS: BP 135/71
--- NOTE | 2020-08-12 23:10 | NUR ---
DC HOME WITH RX AND INSTRUCT, IV DC CATH INTACT
[2020-08-12] MEDS ORDERED: KETOROLAC 30 MG/1 ML IVPush ONE (23:30)
[2020-08-12] MEDS ORDERED: CEFDINIR 300 MG CAPSULE PO ONE (23:30)
== END 2020-08-12 23:12 | disposition home or self-care (01) ==
LOC: ED 20:59
DX: N30.00 Acute cystitis without hematuria (principal); I10 Essential (primary) hypertension; K21.9 Gastro-esophageal reflux disease without esophagitis; E11.9 Type 2 diabetes mellitus without complications
CPT/HCPCS: 36415; 74177; 80053; 81001; 83690; 85025; 87086; 87491; 87591; 96361; 96374; 96375; 99285; J2270; J2405; J7030; Q9967

== ENCOUNTER 2020-08-26 03:18 | Emergency (ER) | payer MEDICAID ==
[~2020-08-26] VITALS: Ht 180.3 cm; Wt 140.0 kg
--- NOTE | 2020-08-26 03:37 | NUR ---
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 DENIES SOB, OR CHEST PAIN AT THIS TIME. PT IN GOWN IN ROOM, AWAITING ERP EVAL
[2020-08-26] MEDS ORDERED: ONDANSETRON 2MG/ML, 2ML ONE (03:57)
[2020-08-26] MEDS ORDERED: KETOROLAC 30 MG/1 ML ONE (03:57)
[2020-08-26] MEDS ORDERED: KETOROLAC 30 MG/1 ML IVPush ONE (04:00)
[2020-08-26] MEDS ORDERED: SODIUM CHLORIDE 0.9% 1,000ML IVBOLUS ONE (04:00)
[2020-08-26] MEDS ORDERED: ONDANSETRON 2MG/ML, 2ML IVPush ONE (04:00)
[2020-08-26 04:25] LABS: BASOPHILS % (AUTO) 1 % (0-1); EOSINOPHILS % (AUTO) 3 % (1-7); LYMPHOCYTES % (AUTO) 17 % (22-44); MEAN CORPUSCULAR HEMOGLOBIN 30.8 pg (27.5-34.5); MEAN CORPUSCULAR HGB CONC 34.2 g/dL (33.2-36.2); MEAN PLATELET VOLUME 8.9 fL (7.4-10.4); MONOCYTES % (AUTO) 13 % (2-9); NEUTROPHILS % (AUTO) 67 % (42-75); PLATELET COUNT 240 x10^3/uL (130-400); RED BLOOD COUNT 4.74 x10^6/uL (4.38-5.82); RED CELL DISTRIBUTION WIDTH 13.7 % (9.4-14.8)
[2020-08-26 04:40] LABS: ALBUMIN 3.5 g/dL (3.4-5.0); ANION GAP 5 mmol/L (5-15); CALCIUM 8.8 mg/dL (8.5-10.1); CHLORIDE 109 mmol/L (98-107)
[2020-08-26 04:43] LABS: CREATININE 0.94 mg/dL (0.7-1.3)
[2020-08-26 04:44] LABS: ALANINE AMINOTRANSFERASE 100 U/L (12-78); ALKALINE PHOSPHATASE 92 U/L (45-117); BILIRUBIN,TOTAL 0.6 mg/dL (0.2-1.0); TOTAL PROTEIN 7.1 g/dL (6.4-8.2)
[2020-08-26 06:11] LABS: MICROSCOPIC INDICATED
[2020-08-26] MEDS ORDERED: CEFTRIAXONE 1,000 MG IM ONE (07:00)
--- NOTE | 2020-08-26 07:01 | NUR ---
REPORT GIVEN TO REGLA ARELLANO
--- NOTE | 2020-08-26 07:02 | NUR ---
ASSUMING CARE OF PT AFTER BEDSIDE REPORT FROM JUAN RAMON ARAUZ. VSS. KRISHNA.
--- NOTE | 2020-08-26 07:18 | NUR ---
THIS RN WENT IN TO MEDICATE PT WITH IM ROCEPHINE. PT REFUSED. STATING HE DID NOT WANT A SHOT. PT EDUCATED ON THE RISKS ON NOT TAKING ANTIBIOTICS. PT STATED HE UNDERSTOOD BUT STILL REFUSING. DR. MARTÍNEZ NOTIFED.
[2020-08-26 07:20] VITALS: BP 117/51
--- NOTE | 2020-08-26 07:32 | NUR ---
Patient given discharge instructions and they have confirmed that they understand the instructions. Patient ambulatory with steady gait. NAD, all questions answered appropriately, denies additional needs at this time. No personal belongings left in room after discharge.
== END 2020-08-26 07:34 | disposition home or self-care (01) ==
LOC: ED 05:37
DX: R10.11 Right upper quadrant pain (principal); R19.7 Diarrhea, unspecified; R05 Cough; I10 Essential (primary) hypertension; K21.9 Gastro-esophageal reflux disease without esophagitis; E11.9 Type 2 diabetes mellitus without complications; F17.200 Nicotine dependence, unspecified, uncomplicated
CPT/HCPCS: 36415; 71045; 80053; 81001; 83690; 85025; 87086; 96361; 96374; 96375; 99284; J1885; J2405; J7030

== ENCOUNTER 2020-11-14 22:08 | Emergency (ER) | payer MEDICAID ==
[~2020-11-14] VITALS: Ht 180.3 cm; Wt 152.0 kg
[2020-11-14 22:42] LABS: BASOPHILS % (AUTO) 1 % (0-1); EOSINOPHILS % (AUTO) 5 % (1-7); LYMPHOCYTES % (AUTO) 21 % (22-44); MEAN CORPUSCULAR HEMOGLOBIN 30.6 pg (27.5-34.5); MEAN CORPUSCULAR HGB CONC 34.7 g/dL (33.2-36.2); MEAN PLATELET VOLUME 8.8 fL (7.4-10.4); MONOCYTES % (AUTO) 8 % (2-9); NEUTROPHILS % (AUTO) 65 % (42-75); PLATELET COUNT 255 x10^3/uL (130-400); RED BLOOD COUNT 5.38 x10^6/uL (4.38-5.82); RED CELL DISTRIBUTION WIDTH 13.6 % (9.4-14.8)
[2020-11-14 22:48] LABS: ALBUMIN 3.5 g/dL (3.4-5.0); ANION GAP 6 mmol/L (5-15); CALCIUM 8.8 mg/dL (8.5-10.1); CHLORIDE 107 mmol/L (98-107); CREATININE 0.98 mg/dL (0.7-1.3)
--- NOTE | 2020-11-15 01:52 | NUR ---
PT AMBULATED TO ROOM 28 AT THIS TIME. PT REPORTS UMBILICAL ABDOMINAL PAIN THAT RADIATES TO THE RIGHT SIDE OF BACK. N/V/D. WILL CONTINUE TO MONITOR. TOMI.
[2020-11-15 02:00] LABS: MICROSCOPIC INDICATED
[2020-11-15] MEDS ORDERED: MORPHINE SULFATE 4 MG/ML, 1ML ONE ×2 (02:45→04:05)
[2020-11-15] MEDS ORDERED: ONDANSETRON 2MG/ML, 2ML ONE (02:45)
[2020-11-15] MEDS ORDERED: CEFTRIAXONE 1,000 MG in DEXTROSE 5% 50 ML IVPB ONE (03:00)
[2020-11-15] MEDS ORDERED: ONDANSETRON 2MG/ML, 2ML IVPush ONE (03:00)
[2020-11-15] MEDS: MORPHINE SULFATE 4 MG/ML, 1ML IVPush PRN ×2 (03:04→04:07)
[2020-11-15 03:57] VITALS: BP 146/75
--- NOTE | 2020-11-15 03:58 | NUR ---
pt resting in bed, vss, awaiting CT results
== END 2020-11-15 04:35 | disposition home or self-care (01) ==
LOC: ED 22:30
DX: N30.00 Acute cystitis without hematuria (principal); R10.11 Right upper quadrant pain; R10.31 Right lower quadrant pain; R11.2 Nausea with vomiting, unspecified; I10 Essential (primary) hypertension; E11.9 Type 2 diabetes mellitus without complications; K21.9 Gastro-esophageal reflux disease without esophagitis; F17.200 Nicotine dependence, unspecified, uncomplicated; Z86.718 Personal history of other venous thrombosis and embolism; Z90.49 Acquired absence of other specified parts of digestive tract
CPT/HCPCS: 36415; 74176; 80048; 81001; 82040; 85025; 87086; 96365; 96375; 96376; 99284; J0696; J2270; J2405